=== PATIENT | male | born 1990 | race Caucasian/White ===

== ENCOUNTER 2018-05-01 12:24 | Emergency (ER) | payer MEDICAID, OTHER ==
[2018-05-01] MEDS: IBUPROFEN 600 MG TAB PO (14:20)
== END 2018-05-01 14:43 | disposition home or self-care (01) ==
LOC: M ED 12:24
DX: S62.632A Displaced fracture of distal phalanx of right middle finger, initial encounter for closed fracture (principal); W22.8XXA Striking against or struck by other objects, initial encounter; Y92.89 Other specified places as the place of occurrence of the external cause; Y93.69 Activity, other involving other sports and athletics played as a team or group
CPT/HCPCS: 73140

== ENCOUNTER 2018-07-04 09:56 | Emergency (ER) | payer OTHER | END 2018-07-04 11:47 | disposition home or self-care (01) | LOC: M ED 09:56 | DX: K02.9 Dental caries, unspecified (principal) | CPT/HCPCS: 99282 ==

== ENCOUNTER 2019-03-12 11:10 | Emergency (ER) | payer OTHER ==
[~2019-03-12] VITALS: Ht 175.3 cm; Wt 79.1 kg
[~2019-03-12 11:10] MED LIST: AMBI10TA; CELE10TA; CELE20TA; DEPA500T2 PO; DRIS50003 PO; HYDR-3715 PO; HYDR10TA3; IBUP200C25 PO; LIDO1SOL8 PO; PERC5TAB12 PO; SEROQUEL; SEROQUEL XR; VITA200016 PO
[2019-03-12 11:11] VITALS: BP 127/71
[2019-03-12] MEDS ORDERED: NAPR500T6 PO (11:56)
== END 2019-03-12 12:08 | disposition home or self-care (01) ==
LOC: M ED 11:10
DX: M25.532 Pain in left wrist (principal); F33.9 Major depressive disorder, recurrent, unspecified

== ENCOUNTER → 2019-04-07 | Outpatient (CLI) | payer OTHER ==
[~2019-04-07] MED LIST changes: +NAPR500T6 PO
[2019-04-07 16:30] LABS: BASO % 0.3 % (0.0-1.0); EOS # 0.1 10^3/uL (0.0-0.50); HEMATOCRIT 44.2 % (42.0-52.0); HEMOGLOBIN 14.7 g/dl (13.5-17.5); LYMPH # 2.4 10^3/uL (1.5-4.5); LYMPH % 25.2 % (24.0-44.0); MEAN CORPUSCULAR HEMOGLOBIN 30.6 pg (27.0-33.0); MEAN CORPUSCULAR HGB CONC 33.3 g/dl (32.0-36.5); MEAN CORPUSCULAR VOLUME 91.9 fl (80.0-96.0); MONO % 10.8 % (0.0-5.0); NEUTROPHILS # 5.9 10^3/uL (1.8-7.7); NEUTROPHILS % 62.5 % (36.0-66.0); PLATELET COUNT, AUTOMATED 217 10^3/uL (150-450); RED BLOOD COUNT 4.81 10^6/uL (4.30-6.10); WHITE BLOOD COUNT 9.5 10^3/uL (4.0-10.0)
--- NOTE | 2019-04-07 16:46 | REP ---
Clinical: Nontraumatic hip pain. Technique: Neutral and frog lateral views of the left hip. Findings: Skeletal structures, joint spaces, and surrounding soft tissues appear normal. No acute fracture dislocation. No significant arthritic changes. Surrounding soft tissues are unremarkable. Impression: Normal left hip radiographs. Electronically Signed by Rafael Maldonado MD 04/07/2019 04:37 P
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
--- NOTE | 2019-04-07 16:48 | REP ---
Clinical: Lower back pain . Technique: AP, lateral, bilateral oblique, and coned-down views. Findings: Alignment and lordosis is maintained. The vertebral bodies including transverse process and spinous processes are intact and normal. There is no evidence for acute fracture / compression injury or subluxation. No evidence for spondylolysis or spondylolisthesis. No significant degenerative change is noted. Impression: Normal lumbosacral spine radiograph series. Electronically Signed by Rafael Maldonado MD 04/07/2019 04:39 P
[2019-04-07 17:10] LABS: ALBUMIN 4.1 GM/DL (3.2-5.2); ALT/SGPT 27 U/L (12-78); BILIRUBIN,TOTAL 0.3 MG/DL (0.2-1.0); BLOOD UREA NITROGEN 11 MG/DL (7-18); CALCIUM LEVEL 9.5 MG/DL (8.5-10.1); CARBON DIOXIDE LEVEL 31 MEQ/L (21-32); CHLORIDE LEVEL 104 MEQ/L (98-107); CHOLESTEROL LEVEL 141 MG/DL (<200); CREATININE FOR GFR 0.96 MG/DL (0.70-1.30); FREE T4 1.07 NG/DL (0.76-1.46); GLOMERULAR FILTRATION RATE > 60.0 (>60); GLUCOSE, FASTING 84 MG/DL (70-100); HDL CHOLESTEROL 53 MG/DL (>40); LDL CHOLESTEROL 60 MG/DL (<100); NON-HDL-C 88 MG/DL; POTASSIUM SERUM 4.2 MEQ/L (3.5-5.1); SODIUM LEVEL 140 MEQ/L (136-145); THYROID STIMULATING HORMONE 0.703 uIU/ML (0.358-3.740); TOTAL PROTEIN 7.1 GM/DL (6.4-8.2); TRIGLYCERIDES LEVEL 142 MG/DL (<150)
== END ==
LOC: M LAB 15:52
PROVIDERS: ATTEND Nurse Practitioner Family
DX: M25.532 Pain in left wrist (principal); M54.5 Low back pain; F31.9 Bipolar disorder, unspecified; Z13.228 Encounter for screening for other metabolic disorders

== ENCOUNTER 2019-08-24 07:36 | Inpatient (IN) | payer MEDICAID, OTHER ==
[~2019-08-24] VITALS: Ht 175.3 cm; Wt 77.2 kg
[2019-08-24 08:13] LABS: HEMATOCRIT 45.2 % (42.0-52.0); HEMOGLOBIN 15.8 g/dl (13.5-17.5); MEAN CORPUSCULAR HEMOGLOBIN 32.5 pg (27.0-33.0); PLATELET COUNT, AUTOMATED 183 10^3/uL (150-450); RED BLOOD COUNT 4.86 10^6/uL (4.30-6.10)
[2019-08-24 08:57] LABS: AMPHETAMINES LEVEL URINE NEGATIVE (NEGATIVE); BARBITURATES URINE NEGATIVE (NEGATIVE); BENZODIAZEPINES URINE NEGATIVE (NEGATIVE); CANNABINOIDS URINE POSITIVE (NEGATIVE); COCAINE METABOLITE URINE NEGATIVE (NEGATIVE); METHADONE URINE NEGATIVE (NEGATIVE); OPIATES URINE NEGATIVE (NEGATIVE); PHENCYCLIDINE URINE NEGATIVE (NEGATIVE)
[2019-08-24 09:16] LABS: ACETAMINOPHEN LEVEL < 2.0 UG/ML (10.0-30.0); ALBUMIN 4.2 GM/DL (3.2-5.2); ALT/SGPT 30 U/L (12-78); BILIRUBIN,DIRECT 0.1 MG/DL (0.0-0.2); BILIRUBIN,TOTAL 0.4 MG/DL (0.2-1.0); BLOOD UREA NITROGEN 14 MG/DL (7-18); CALCIUM LEVEL 9.2 MG/DL (8.5-10.1); CARBON DIOXIDE LEVEL 27 MEQ/L (21-32); CHLORIDE LEVEL 105 MEQ/L (98-107); CREATININE FOR GFR 0.96 MG/DL (0.70-1.30); ETHYL ALCOHOL (ETHANOL) < 0.003 % (0.000-0.010); GLOMERULAR FILTRATION RATE > 60.0 (>60); GLUCOSE, FASTING 96 MG/DL (70-100); POTASSIUM SERUM 4.1 MEQ/L (3.5-5.1); SALICYLATE LEVEL 2.9 MG/DL (5.0-30.0); SODIUM LEVEL 138 MEQ/L (136-145); TOTAL PROTEIN 7.4 GM/DL (6.4-8.2)
[2019-08-24] MEDS ORDERED: ACETAMINOPHEN TAB 650MG DOSE (2X325MG) PO PRN (18:45)
[2019-08-24] MEDS ORDERED: MAALOX 30 ML SUSP *UDC PO PRN (18:45)
[2019-08-24] MEDS ORDERED: MOM 30ML SUSPENSION UDC PO PRN (18:45)
[2019-08-24 20:19] VITALS: BP 142/85
[2019-08-24] MEDS ORDERED: traZODone 50 MG TAB PO PRN (21:00)
[2019-08-25 06:57] VITALS: BP 142/73
--- NOTE | 2019-08-25 07:35 | ECGEPIP ---
[facility] - ED Test Date: 2019-08-24 Pat Name: GREGORIO JOSHUA Department: Room: - Gender: Male Rehab Specialist: : 1990 Requested By: Arpit Wong Order Number: [id number] Reading MD: Arpit Anderson Measurements Intervals [place] Rate: 61 P: 63 CA: 131 QRS: 76 QRSD: 88 T: 53 QT: 413 QTc: 417 Interpretive Statements SINUS RHYTHM WITH MARKED SINUS ARRHYTHMIA INCOMPLETE RIGHT BUNDLE BRANCH BLOCK BENIGN EARLY REPOLARIZATION PROMINENT T WAVES ON ALL PRIORS Electronically Signed on 08-25-2019 7:35:01 EDT by Arpit Anderson
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
[2019-08-25 16:06] VITALS: BP 126/65
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
--- NOTE | 2019-08-25 18:16 | REP ---
Clinical: Left hip pain. Technique: Single AP view of the pelvis. Findings: Osseous structures, joint spaces, and surrounding soft tissues are symmetric and normal for age. Impression: Normal pelvic radiograph. Electronically Signed by Rafael Maldonado MD 08/25/2019 06:07 P
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
--- NOTE | 2019-08-25 20:55 | REPVR ---
PROCEDURE INFORMATION: Exam: MR Lumbar Spine Without Contrast. Exam date and time: 08/25/2019 8:03 PM Clinical history: 29 years old, male; Pain; Lumbago with sciatica; Left; Additional info: Low back pain with left sided radiculopathy TECHNIQUE: Imaging protocol: Multiplanar magnetic resonance images of the lumbar spine without intravenous contrast. COMPARISON: CR Spine. Lumbosacral, complete 04/07/2019 4:18 PM FINDINGS: Vertebral body heights are maintained. No abnormal marrow signal. No cord compression. No abnormal cord signal. Conus medullaris terminates at the L1 level. Paravertebral soft tissues are unremarkable. L1-L2: No significant canal or foraminal narrowing. L2-L3: No significant canal or foraminal narrowing. L3-L4: No significant canal or foraminal narrowing. L4-L5: Small right foraminal disc protrusion causes mild right foraminal narrowing. No significant canal narrowing. L5-S1: No significant canal or foraminal narrowing. IMPRESSION: No acute findings in the lumbar spine. Electronically signed by: Fabian Henson On 08/25/2019 20:55:26 PM
[2019-08-26 06:23] VITALS: BP 136/69
[2019-08-26 07:28] LABS: HEMOGLOBIN A1c 5.3 %
[2019-08-26 07:38] LABS: CHOLESTEROL RISK RATIO 3.033 (<5)
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
[2019-08-26 16:11] VITALS: BP 106/58
[2019-08-27 06:21] VITALS: BP 139/76
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
[2019-08-27 14:12] LABS: ANTINUCLEAR ANTIBODIES DIRECT Negative (Negative)
== END 2019-08-27 12:30 | disposition home or self-care (01) | DRG 754 ==
LOC: M ED 07:36 → M ED INP 18:42 → M ED 20:09 → M PSY 20:10
PROVIDERS: ADMIT Psychiatry & Neurology Psychiatry; ATTEND Psychiatry & Neurology Psychiatry
DX: F32.9 Major depressive disorder, single episode, unspecified (principal); R45.851 Suicidal ideations; F41.8 Other specified anxiety disorders; F60.2 Antisocial personality disorder; F60.81 Narcissistic personality disorder; Z76.5 Malingerer [conscious simulation]; Z59.0 Homelessness; M54.5 Low back pain; F12.90 Cannabis use, unspecified, uncomplicated; R51 Headache

== ENCOUNTER 2019-09-28 14:50 | Emergency (ER) | payer MEDICAID, OTHER ==
[~2019-09-28] VITALS: Ht 175.3 cm; Wt 76.0 kg
[2019-09-28] MEDS ORDERED: NS 1,000 ML IV ONE ×2 (15:00→16:15)
[2019-09-28 15:33] LABS: VENOUS BASE EXCESS -4.5 (-2.0-2.0); VENOUS HCO3 20.5 MEQ/L (23.0-27.0); VENOUS O2 SATURATION 92.3 % (60.0-80.0); VENOUS PARTIAL PRESSURE O2 65.1 mmHg (30.0-50.0); VENOUS PH 7.349 UNITS (7.330-7.430); VENOUS STANDARD HCO3 20.7 MEQ/L; VENOUS TOTAL CO2 21.6 MEQ/L (24.0-28.0)
[2019-09-28 15:38] LABS: BASO % 0.3 % (0.0-1.0); EOS % 0.1 % (0.0-3.0); HEMATOCRIT 49.8 % (42.0-52.0); HEMOGLOBIN 16.8 g/dl (13.5-17.5); LYMPH # 1.8 10^3/uL (1.5-5.0); LYMPH % 13.1 % (24.0-44.0); MEAN CORPUSCULAR HEMOGLOBIN 31.3 pg (27.0-33.0); MEAN CORPUSCULAR HGB CONC 33.7 g/dl (32.0-36.5); MEAN CORPUSCULAR VOLUME 92.7 fl (80.0-96.0); MONO % 7.2 % (0.0-5.0); NEUTROPHILS # 10.5 10^3/uL (1.5-8.5); NEUTROPHILS % 78.8 % (36.0-66.0); PLATELET COUNT, AUTOMATED 207 10^3/uL (150-450); RED BLOOD COUNT 5.37 10^6/uL (4.30-6.10); WHITE BLOOD COUNT 13.3 10^3/uL (4.0-10.0)
[2019-09-28 16:00] LABS: OSMOLALITY SERUM 288 MOSM/KG (275-295)
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
[2019-09-28 16:07] LABS: ACETAMINOPHEN LEVEL < 2.0 UG/ML (10.0-30.0); ALBUMIN 4.5 GM/DL (3.2-5.2); ALT/SGPT 34 U/L (12-78); BILIRUBIN,DIRECT 0.1 MG/DL (0.0-0.2); BILIRUBIN,TOTAL 0.5 MG/DL (0.2-1.0); BLOOD UREA NITROGEN 16 MG/DL (7-18); CALCIUM LEVEL 9.1 MG/DL (8.5-10.1); CARBON DIOXIDE LEVEL 21 MEQ/L (21-32); CHLORIDE LEVEL 101 MEQ/L (98-107); CK-MB VALUE MASS 1.4 NG/ML (<3.6); CPK CREATINE PHOSPHOKINASE 112 U/L (39-308); ETHYL ALCOHOL (ETHANOL) < 0.003 % (0.000-0.010); GLOMERULAR FILTRATION RATE > 60.0 (>60); GLUCOSE, FASTING 172 MG/DL (70-100); MB/CK RELATIVE INDEX 1.25 (< OR =4); POTASSIUM SERUM 4.1 MEQ/L (3.5-5.1); SALICYLATE LEVEL 2.2 MG/DL (5.0-30.0); SODIUM LEVEL 136 MEQ/L (136-145); TOTAL PROTEIN 8.1 GM/DL (6.4-8.2); TROPONIN I < 0.02 NG/ML (< 0.10)
[2019-09-28 16:10] LABS: AMPHETAMINES LEVEL URINE NEGATIVE (NEGATIVE); BARBITURATES URINE NEGATIVE (NEGATIVE); BENZODIAZEPINES URINE NEGATIVE (NEGATIVE); CANNABINOIDS URINE POSITIVE (NEGATIVE); COCAINE METABOLITE URINE NEGATIVE (NEGATIVE); METHADONE URINE NEGATIVE (NEGATIVE); OPIATES URINE NEGATIVE (NEGATIVE); PHENCYCLIDINE URINE NEGATIVE (NEGATIVE)
[2019-09-28] MEDS ORDERED: NS 500 ML IV ONE (16:15)
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
--- NOTE | 2019-09-28 16:39 | REP ---
Single view chest: 09/28/2019. Indication: Altered mental status. Comparison: 04/08/2013. Findings: The lungs are clear. There is no pleural effusion or pneumothorax. The cardiomediastinal silhouette is unremarkable. Impression: No acute cardiopulmonary process. Electronically Signed by Larry Prado DO 09/28/2019 04:31 P
--- NOTE | 2019-09-28 18:46 | ECGEPIP ---
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
[2019-09-28 19:00] VITALS: BP 99/53
== END 2019-09-28 20:02 | disposition home or self-care (01) ==
LOC: M ED 14:50 → EDBD 14:50 → M ED 20:02
DX: G40.909 Epilepsy, unspecified, not intractable, without status epilepticus (principal); F31.9 Bipolar disorder, unspecified; F12.10 Cannabis abuse, uncomplicated; J34.89 Other specified disorders of nose and nasal sinuses
CPT/HCPCS: 70450; 70486; 71045; 72125; 80048; 80076; 80307; 81001; 82550; 82553; 82803; 83605; 83930; 84443; 85025; 87040; 93005; 93041; 99285; G0480

== ENCOUNTER → 2019-10-13 | Outpatient (REF) | payer OTHER ==
[2019-10-13 13:01] LABS: BASO # 0.1 10^3/uL (0.0-0.2); BASO % 0.5 % (0.0-1.0); EOS # 0.2 10^3/uL (0.0-0.5); EOS % 2.1 % (0.0-3.0); HEMATOCRIT 48.1 % (42.0-52.0); HEMOGLOBIN 15.9 g/dl (13.5-17.5); LYMPH # 3.1 10^3/uL (1.5-5.0); MEAN CORPUSCULAR HEMOGLOBIN 31.3 pg (27.0-33.0); MEAN CORPUSCULAR HGB CONC 33.1 g/dl (32.0-36.5); MEAN CORPUSCULAR VOLUME 94.7 fl (80.0-96.0); MONO # 1.1 10^3/uL (0.0-0.8); MONO % 10.6 % (0.0-5.0); NEUTROPHILS # 6.1 10^3/uL (1.5-8.5); NEUTROPHILS % 57.6 % (36.0-66.0); PLATELET COUNT, AUTOMATED 212 10^3/uL (150-450); RED BLOOD COUNT 5.08 10^6/uL (4.30-6.10); WHITE BLOOD COUNT 10.5 10^3/uL (4.0-10.0)
[2019-10-13 13:35] LABS: HEMOGLOBIN A1c 5.4 %; TOTAL 25(OH) VITAMIN D 26.4 NG/ML (30.0-100.0)
[2019-10-13 13:54] LABS: ALT/SGPT 30 U/L (12-78); BILIRUBIN,TOTAL 0.5 MG/DL (0.2-1.0); BLOOD UREA NITROGEN 14 MG/DL (7-18); CALCIUM LEVEL 9.5 MG/DL (8.5-10.1); CARBON DIOXIDE LEVEL 32 MEQ/L (21-32); CHLORIDE LEVEL 105 MEQ/L (98-107); CHOLESTEROL LEVEL 194 MG/DL (<200); CHOLESTEROL RISK RATIO 3.527 (<5); CREATININE FOR GFR 1.05 MG/DL (0.70-1.30); FREE T4 1.02 NG/DL (0.76-1.46); GLOMERULAR FILTRATION RATE > 60.0 (>60); GLUCOSE, FASTING 102 MG/DL (70-100); HDL CHOLESTEROL 55 MG/DL (>40); LDL CHOLESTEROL 121 MG/DL (<100); NON-HDL-C 139 MG/DL; POTASSIUM SERUM 4.3 MEQ/L (3.5-5.1); SODIUM LEVEL 142 MEQ/L (136-145); TOTAL PROTEIN 7.3 GM/DL (6.4-8.2); TRIGLYCERIDES LEVEL 91 MG/DL (<150)
== END ==
LOC: M LAB REF 12:49
PROVIDERS: ATTEND Nurse Practitioner Family
DX: Z13.29 Encounter for screening for other suspected endocrine disorder (principal)

== ENCOUNTER 2020-05-27 13:50 | Emergency (ER) | payer OTHER ==
[~2020-05-27 13:50] MED LIST changes: -LIDO1SOL8 PO; +LIDO2SOL17 PO
[2020-05-27] MEDS ORDERED: ONDANSETRON 4MG/2ML VIAL IV ONE (14:30)
[2020-05-27] MEDS ORDERED: NS 1,000 ML IV ONE (14:30)
--- NOTE | 2020-05-27 14:34 | REP ---
CT BRAIN WITHOUT CONTRAST: CT brain performed without IV contrast. Coronal reconstruction images are performed. The ventricles are normal in size and position. There is no midline shift or mass effect. The arguello-white differentiation is well maintained. There is no acute intracranial hemorrhage or extra-axial fluid collection. No skull fracture is seen. IMPRESSION: Negative noncontrast CT brain. Electronically Signed by Benjamin Arguello MD 05/30/2020 09:42 A
[2020-05-27 14:40] LABS: BASO % 0.2 % (0.0-1.0); EOS % 0.1 % (0.0-3.0); HEMATOCRIT 44.4 % (42.0-52.0); HEMOGLOBIN 15.3 g/dl (13.5-17.5); LYMPH % 5.5 % (24.0-44.0); MEAN CORPUSCULAR HEMOGLOBIN 31.4 pg (27.0-33.0); MEAN CORPUSCULAR HGB CONC 34.5 g/dl (32.0-36.5); MEAN CORPUSCULAR VOLUME 91.2 fl (80.0-96.0); MONO # 1.6 10^3/uL (0.0-0.8); MONO % 8.7 % (0.0-5.0); NEUTROPHILS # 15.8 10^3/uL (1.5-8.5); NEUTROPHILS % 85.1 % (36.0-66.0); PLATELET COUNT, AUTOMATED 182 10^3/uL (150-450); RED BLOOD COUNT 4.87 10^6/uL (4.30-6.10); WHITE BLOOD COUNT 18.6 10^3/uL (4.0-10.0)
[2020-05-27 15:13] LABS: ALBUMIN 4.3 GM/DL (3.2-5.2); ALT/SGPT 27 U/L (12-78); BILIRUBIN,DIRECT < 0.1 MG/DL (0.0-0.2); BILIRUBIN,TOTAL 0.3 MG/DL (0.2-1.0); ETHYL ALCOHOL (ETHANOL) < 0.003 % (0.000-0.010); TOTAL PROTEIN 7.5 GM/DL (6.4-8.2)
[2020-05-27 17:23] LABS: AMPHETAMINES LEVEL URINE NEGATIVE (NEGATIVE); BARBITURATES URINE NEGATIVE (NEGATIVE); BENZODIAZEPINES URINE POSITIVE (NEGATIVE); CANNABINOIDS URINE POSITIVE (NEGATIVE); COCAINE METABOLITE URINE NEGATIVE (NEGATIVE); METHADONE URINE NEGATIVE (NEGATIVE); OPIATES URINE NEGATIVE (NEGATIVE); PHENCYCLIDINE URINE NEGATIVE (NEGATIVE)
[2020-05-27] MEDS ORDERED: EEG (17:30)
[2020-05-27 18:15] VITALS: BP 127/73
== END 2020-05-27 18:29 | disposition home or self-care (01) ==
LOC: M ED 13:50 → EDBD 13:50 → M ED 18:29
DX: R56.9 Unspecified convulsions (principal); F32.9 Major depressive disorder, single episode, unspecified; G89.29 Other chronic pain
CPT/HCPCS: 70450; 80047; 80076; 80307; 85025; 96361; 96374; 99284; G0480; J2405

== ENCOUNTER 2020-06-22 18:05 | Emergency (ER) | payer OTHER ==
[~2020-06-22 18:05] MED LIST changes: +EEG
== END 2020-06-22 21:02 | disposition home or self-care (01) ==
LOC: M ED 18:05
DX: H66.91 Otitis media, unspecified, right ear (principal)

== ENCOUNTER 2020-07-22 13:22 | Emergency (ER) | payer OTHER ==
[~2020-07-22] VITALS: Ht 175.3 cm; Wt 84.1 kg
[2020-07-22] MEDS ORDERED: LORazepam 2 MG/ML VIAL As Ordered ONE (13:29)
[2020-07-22] MEDS ORDERED: LORazepam 2 MG/ML VIAL IV STA (13:34)
[2020-07-22] MEDS ORDERED: NS 1,000 ML IV ONE (13:45)
[2020-07-22] MEDS ORDERED: levETIRAcetam INJection 1,000 MG in D5W 100 ML IV ONE (13:45)
--- NOTE | 2020-07-22 14:00 | REPVR ---
PROCEDURE INFORMATION: Exam: CT Head Without Contrast Exam date and time: 07/22/2020 1:34 PM Age: 30 years old Clinical indication: Altered mental status/memory loss TECHNIQUE: Imaging protocol: Computed tomography of the head without contrast. Radiation optimization: All CT scans at this facility use at least one of these dose optimization techniques: automated exposure control; mA and/or kV adjustment per patient size (includes targeted exams where dose is matched to clinical indication); or iterative reconstruction. COMPARISON: CT Head without contrast 05/27/2020 2:00 PM FINDINGS: Brain: No acute intracranial hemorrhage, cerebral edema, or midline shift. Ventricles: No hydrocephalus. Bones/joints: There is an old right medial orbital wall fracture. Sinuses: Mucosal thickening is present in the right ethmoid air cells. Mastoid air cells: Visualized mastoid air cells are well aerated. Orbits: The included orbital structures are unremarkable. Soft tissues: Unremarkable. IMPRESSION: No acute intracranial abnormality. Electronically signed by: Alec Navarrete On 07/22/2020 13:59:47 PM
[2020-07-22 14:25] LABS: BASO % 0.2 % (0.0-1.0); EOS % 0.2 % (0.0-3.0); HEMATOCRIT 49.1 % (42.0-52.0); HEMOGLOBIN 16.4 g/dl (13.5-17.5); LYMPH # 2.4 10^3/uL (1.5-5.0); MEAN CORPUSCULAR HEMOGLOBIN 31.7 pg (27.0-33.0); MEAN CORPUSCULAR HGB CONC 33.4 g/dl (32.0-36.5); MONO # 1.1 10^3/uL (0.0-0.8); MONO % 6.6 % (0.0-5.0); NEUTROPHILS # 13.2 10^3/uL (1.5-8.5); NEUTROPHILS % 78.3 % (36.0-66.0); PLATELET COUNT, AUTOMATED 223 10^3/uL (150-450); RED BLOOD COUNT 5.17 10^6/uL (4.30-6.10); WHITE BLOOD COUNT 16.8 10^3/uL (4.0-10.0)
[2020-07-22 14:56] LABS: ACETAMINOPHEN LEVEL < 2.0 UG/ML (10.0-30.0); ALBUMIN 4.5 GM/DL (3.2-5.2); ALT/SGPT 26 U/L (12-78); BILIRUBIN,DIRECT 0.1 MG/DL (0.0-0.2); BILIRUBIN,TOTAL 0.4 MG/DL (0.2-1.0); BLOOD UREA NITROGEN 12 MG/DL (7-18); CALCIUM LEVEL 9.3 MG/DL (8.5-10.1); CARBON DIOXIDE LEVEL 19 MEQ/L (21-32); CHLORIDE LEVEL 105 MEQ/L (98-107); CK-MB VALUE MASS < 1.0 NG/ML (<3.6); CPK CREATINE PHOSPHOKINASE 90 U/L (39-308); CREATININE FOR GFR 1.31 MG/DL (0.70-1.30); ETHYL ALCOHOL (ETHANOL) < 0.003 % (0.000-0.010); GLOMERULAR FILTRATION RATE > 60.0 (>60); GLUCOSE, FASTING 140 MG/DL (70-100); MB/CK RELATIVE INDEX 1.11 (< OR =4); POTASSIUM SERUM 3.8 MEQ/L (3.5-5.1); SALICYLATE LEVEL 2.6 MG/DL (5.0-30.0); SODIUM LEVEL 137 MEQ/L (136-145); TOTAL PROTEIN 8.1 GM/DL (6.4-8.2); TROPONIN I < 0.02 NG/ML (< 0.10)
[2020-07-22] MEDS ORDERED: NS IV ONE (15:00)
--- NOTE | 2020-07-22 16:24 | REPVR ---
PROCEDURE INFORMATION: Exam: XR Chest, 1 View Exam date and time: 07/22/2020 1:34 PM Age: 30 years old Clinical indication: Other: Seizure; Additional info: Altered mental status TECHNIQUE: Imaging protocol: XR of the chest Views: 1 view. COMPARISON: ME PORTABLE CHEST X-RAY 09/28/2019 4:25 PM FINDINGS: Lungs: Unremarkable. No consolidation. Pleural space: Unremarkable. No pleural effusion. No pneumothorax. Heart/Mediastinum: Unremarkable. No cardiomegaly. Bones/joints: Unremarkable. IMPRESSION: No acute findings. Electronically signed by: Alec Navarrete On 07/22/2020 16:24:08 PM
[2020-07-22 18:37] LABS: AMPHETAMINES LEVEL URINE NEGATIVE (NEGATIVE); BARBITURATES URINE NEGATIVE (NEGATIVE); BENZODIAZEPINES URINE NEGATIVE (NEGATIVE); CANNABINOIDS URINE POSITIVE (NEGATIVE); COCAINE METABOLITE URINE NEGATIVE (NEGATIVE); METHADONE URINE NEGATIVE (NEGATIVE); OPIATES URINE NEGATIVE (NEGATIVE); PHENCYCLIDINE URINE NEGATIVE (NEGATIVE)
[2020-07-22 18:39] VITALS: BP 112/68
[2020-07-22] MEDS ORDERED: KEPP1TAB PO (18:53)
--- NOTE | 2020-07-29 12:28 | ECGEPIP ---
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
== END 2020-07-22 19:57 | disposition home or self-care (01) ==
LOC: M ED 13:22 → EDBD 13:22 → M ED 19:57
DX: G40.909 Epilepsy, unspecified, not intractable, without status epilepticus (principal)
CPT/HCPCS: 70450; 71045; 80048; 80076; 80307; 81001; 82550; 82553; 83605; 84443; 85025; 93005; 93041; 94760; 96361; 96365; 99285; G0480; J1953; J2060

== ENCOUNTER 2020-10-07 10:56 | Emergency (ER) | payer MEDICAID, OTHER ==
[~2020-10-07] VITALS: Ht 175.3 cm; Wt 81.3 kg
[~2020-10-07 10:56] MED LIST changes: +KEPP1TAB PO
[2020-10-07] MEDS ORDERED: levETIRAcetam INJection 1,000 MG in D5W 100 ML IV ONE (11:45)
[2020-10-07 11:54] LABS: BASO % 0.2 % (0.0-1.0); HEMATOCRIT 46.6 % (42.0-52.0); HEMOGLOBIN 15.3 g/dl (13.5-17.5); LYMPH # 1.1 10^3/uL (1.5-5.0); LYMPH % 12.3 % (24.0-44.0); MEAN CORPUSCULAR HEMOGLOBIN 30.2 pg (27.0-33.0); MEAN CORPUSCULAR HGB CONC 32.8 g/dl (32.0-36.5); MEAN CORPUSCULAR VOLUME 91.9 fl (80.0-96.0); MONO # 1.8 10^3/uL (0.0-0.8); MONO % 20.8 % (0.0-5.0); NEUTROPHILS # 5.7 10^3/uL (1.5-8.5); NEUTROPHILS % 66.6 % (36.0-66.0); PLATELET COUNT, AUTOMATED 186 10^3/uL (150-450); RED BLOOD COUNT 5.07 10^6/uL (4.30-6.10); WHITE BLOOD COUNT 8.5 10^3/uL (4.0-10.0)
--- NOTE | 2020-10-07 12:11 | REP ---
INDICATION: seizure COMPARISON: 09/28/2019, 07/22/2020 TECHNIQUE: Axial noncontrast images from the skull base to the vertex with coronal reformations. This CT examination was performed using the following dose reduction techniques: Automated exposure control, adjustment of mA and/or kv according to the patient's size, and use of iterative reconstruction technique. FINDINGS: The ventricles, sulci, and cisterns are normal in position and appearance. Arguello-white differentiation is maintained. No acute intracranial hemorrhage, mass/mass effect, pathology or trauma/injury. No evidence for acute infarction. No extra-axial fluid collection. Calvarium is intact. Paranasal sinuses and mastoid air cells are clear. IMPRESSION: Normal noncontrast head CT. No evidence for acute intracranial pathology or trauma/injury. <Electronically signed by Rafael Maldonado > 10/07/20 [id number]
[2020-10-07 12:23] LABS: ALBUMIN 2.9 GM/DL (3.2-5.2); ALT/SGPT 27 U/L (12-78); BILIRUBIN,DIRECT 0.1 MG/DL (0.0-0.2); BILIRUBIN,TOTAL 0.3 MG/DL (0.2-1.0); BLOOD UREA NITROGEN 15 MG/DL (7-18); CALCIUM LEVEL 9.2 MG/DL (8.5-10.1); CARBON DIOXIDE LEVEL 31 MEQ/L (21-32); CHLORIDE LEVEL 101 MEQ/L (98-107); CREATININE FOR GFR 1.03 MG/DL (0.70-1.30); GLOMERULAR FILTRATION RATE > 60.0 (>60); GLUCOSE, FASTING 100 MG/DL (70-100); POTASSIUM SERUM 3.6 MEQ/L (3.5-5.1); SODIUM LEVEL 136 MEQ/L (136-145); TOTAL PROTEIN 7.4 GM/DL (6.4-8.2)
[2020-10-07] MEDS ORDERED: KEPP1TAB PO (12:49)
[2020-10-07 13:40] VITALS: BP 131/77
== END 2020-10-07 13:42 | disposition home or self-care (01) ==
LOC: M ED 10:56
DX: R56.9 Unspecified convulsions (principal); Z91.14 Patient's other noncompliance with medication regimen; F31.89 Other bipolar disorder; Z79.899 Other long term (current) drug therapy
CPT/HCPCS: 70450; 80048; 80076; 85025; 96374; 99284; J1953

== ENCOUNTER 2020-10-09 14:25 | Emergency (ER) | payer OTHER ==
[~2020-10-09] VITALS: Ht 175.3 cm; Wt 82.3 kg
[2020-10-09 14:26] VITALS: BP 121/71
[2020-10-09] MEDS ORDERED: BENZ200C70 PO (15:00)
== END 2020-10-09 15:14 | disposition home or self-care (01) ==
LOC: M ED 14:25
DX: Z11.59 Encounter for screening for other viral diseases (principal); R05 Cough; R56.9 Unspecified convulsions; F17.200 Nicotine dependence, unspecified, uncomplicated
CPT/HCPCS: 99282; U0003

== ENCOUNTER 2020-10-11 11:16 | Emergency (ER) | payer OTHER ==
[~2020-10-11] VITALS: Ht 175.3 cm; Wt 79.5 kg
[~2020-10-11 11:16] MED LIST changes: +BENZ200C70 PO
[2020-10-11] MEDS ORDERED: ALBUTEROL 90 MCG/ACT 8GM HFA INHALER INH STA (12:29)
--- NOTE | 2020-10-11 14:12 | REP ---
INDICATION: wheezing, sob. COMPARISON: Comparison radiograph July 22, 2020.. TECHNIQUE: Sitting upright AP portable radiograph. FINDINGS: The lungs are well inflated and clear. The pleural angles are sharp. Heart size is normal. Pulmonary vasculature is not increased. No bony abnormality is seen. IMPRESSION: Negative portable chest x-ray. <Electronically signed by Chapin Bravo > 10/11/20 [id number]
[2020-10-11] MEDS ORDERED: PROA1AER2 INH (14:38)
[2020-10-11 15:01] VITALS: BP 127/79
== END 2020-10-11 15:03 | disposition home or self-care (01) ==
LOC: M ED 11:16
DX: R06.2 Wheezing (principal); R06.02 Shortness of breath; R56.9 Unspecified convulsions; F17.200 Nicotine dependence, unspecified, uncomplicated

== ENCOUNTER 2020-12-01 15:46 | Emergency (ER) | payer OTHER ==
[~2020-12-01] VITALS: Ht 175.3 cm; Wt 79.0 kg
[~2020-12-01 15:46] MED LIST changes: +PROA1AER2 INH
--- OUTSIDE RECORDS SUMMARY | 2020-12-01 15:53 | CCD ---
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 Name Role Phone Anushka Dias Unavailable Unavailable Anushka Dias Unavailable Unavailable Anushka Dias Unavailable Unavailable Arun, A Noemi MARKETING SEGMENT MANAGER Unavailable Unavailable Arun, A Noemi MARKETING SEGMENT MANAGER Unavailable Unavailable Arun, A Noemi MARKETING SEGMENT MANAGER Unavailable Unavailable Arun, A Noemi MARKETING SEGMENT MANAGER Unavailable Unavailable Arun, A Noemi MARKETING SEGMENT MANAGER Unavailable Unavailable Arun, A Noemi MARKETING SEGMENT MANAGER Unavailable Unavailable Arun, A Noemi MARKETING SEGMENT MANAGER Unavailable Unavailable Arun, A Noemi MARKETING SEGMENT MANAGER Unavailable Unavailable [place], A Noemi MARKETING SEGMENT MANAGER Unavailable Unavailable Arun, A Noemi MARKETING SEGMENT MANAGER Unavailable Unavailable [place], A Noemi MARKETING SEGMENT MANAGER Unavailable Unavailable [place], A Noemi MARKETING SEGMENT MANAGER Unavailable Unavailable Arun, A Noemi MARKETING SEGMENT MANAGER Unavailable Unavailable Arun, A Nomei MARKETING SEGMENT MANAGER Unavailable Unavailable Arun, A Noemi MARKETING SEGMENT MANAGER Unavailable Unavailable Arun, A Noemi MARKETING SEGMENT MANAGER Unavailable Unavailable Arun, A Noemi MARKETING SEGMENT MANAGER Unavailable Unavailable Arun, A Noemi MARKETING SEGMENT MANAGER Unavailable Unavailable Arun, A Noemi MARKETING SEGMENT MANAGER Unavailable Unavailable Arun, A Noemi MARKETING SEGMENT MANAGER Unavailable Unavailable Arun, A Noemi MARKETING SEGMENT MANAGER Unavailable Unavailable Arun, A Noemi MARKETING SEGMENT MANAGER Unavailable Unavailable Arun, A Noemi MARKETING SEGMENT MANAGER Unavailable Unavailable Arun, A Noemi MARKETING SEGMENT MANAGER Unavailable Unavailable Izadyar, Manuel Unavailable Unavailable Izadyar, Manuel Unavailable Unavailable Izadyar, Manuel Unavailable Unavailable Izadyar, Manuel Unavailable Unavailable Izadyar, Manuel Unavailable Unavailable Izadyar, Manuel Unavailable Unavailable Izadyar, Manuel Unavailable Unavailable Izadyar, Manuel Unavailable Unavailable Izadyar, Manuel Unavailable Unavailable Izadyar, Manuel Unavailable Unavailable Izadyar, Manuel Unavailable Unavailable Izadyar, Manuel Unavailable Unavailable Izadyar, Manuel Unavailable Unavailable Izadyar, Manuel Unavailable Unavailable Izadyar, Manuel Unavailable Unavailable Izadyar, Manuel Unavailable Unavailable Izadyar, Manuel Unavailable Unavailable Izadyar, Manuel Unavailable Unavailable Izadyar, Manuel Unavailable Unavailable Izadyar, Manuel Unavailable Unavailable Izadyar, Manuel Unavailable Unavailable Izadyar, Manuel Unavailable Unavailable Izadyar, Manuel Unavailable Unavailable Izadyar, Manuel Unavailable Unavailable Izadyar, Manuel Unavailable Unavailable Izadyar, Manuel Unavailable Unavailable Izadyar, Manuel Unavailable Unavailable Izadyar, Manuel Unavailable Unavailable Izadyar, Manuel Unavailable Unavailable Izadyar, Manuel Unavailable Unavailable LaBarge, Baltazar Unavailable Arun, Noemi MARKETING SEGMENT MANAGER MARKETING SEGMENT MANAGER Unavailable Unavailable Re-disclosure Warning The records that you are about to access may contain information from federally-assisted alcohol or drug abuse programs. If such information is present, then the following federally mandated warning applies: This information has been disclosed to you from records protected by federal confidentiality rules (42 CFR part 2). The federal rules prohibit you from making any further disclosure of this information unless further disclosure is expressly permitted by the written consent of the person to whom it pertains or as otherwise permitted by 42 CFR part 2. A general authorization for the release of medical or other information is NOT sufficient for this purpose. The Federal rules restrict any use of the information to criminally investigate or prosecute any alcohol or drug abuse patient.The records that you are about to access may contain highly sensitive health information, the redisclosure of which is protected by Article 27-F of the [facility] Public Health law. If you continue you may have access to information: Regarding HIV / AIDS; Provided by facilities licensed or operated by the [facility] Office of Mental Health; or Provided by the [facility] Office for People With Developmental Disabilities. If such information is present, then the following [facility] mandated warning applies: This information has been disclosed to you from confidential records which are protected by state law. State law prohibits you from making any further disclosure of this information without the specific written consent of the person to whom it pertains, or as otherwise permitted by law. Any unauthorized further disclosure in violation of state law may result in a fine or [place] health care facility sentence or both. A general authorization for the release of medical or other information is NOT sufficient authorization for further disc losure. Encounters Encounter Providers Location Date Indications Data Source(s ) Outpatient Attender: Manuel Escobar 12/12/2020 12:00:00 A M [facility] [place] [address] [facility] [place] [address] 09/07/2020 12:00:00 AM EDT [facility] ([facility]) [place] [address] [facility] [place] [address] 08/26/2020 12:00:00 AM EDT [facility]CW1 ([facility]) [place] [address] [facility] [facility] [place] [address] 08/10/2020 12:00:00 AM EDT eCW1 ([facility]) Outpatient Attender: FARIDA [facility] 08/04/2020 12:02:14 A M EDT [facility] Outpatient Attender: Noemi Dias [facility] 07/25/2020 03:0 4:01 PM EDT [facility] Outpatient Attender: FARIDA Arun [facility] 04/19/2020 07:36:50 P M EDT [facility] Outpatient Attender: FARIDA Arun [facility]ING [facility] 04/09/2020 12:10:57 A M EDT [facility] Brief Individual Psychotherapy - 30 min Attender: Baltazar roger [facility] 11/19/2019 02:00:00 AM EST - 11/19/2019 02:00:00 AM EST [facility] ([facility]) Attender: Baltazar LaBarge 11/19/2019 12:00:00 AM EST [facility] ([facility]) Outpatient Attender: FARIDA Dias [facility] 11/17/2019 12:08:01 P M [facility] Outpatient Attender: Noemi Dias [facility] 11/17/2019 12:0 7:02 PM [facility] Brief Individual Psychotherapy - 30 min Attender: Baltazar roger [facility] 11/02/2019 10:15:00 AM EST - 11/02/2019 10:15:00 AM EST [facility] ([facility]) Attender: Baltazar LaBarge 11/02/2019 12:00:00 AM EST [facility] ([facility]) Outpatient Attender: FARIDA Dias [facility] 11/01/2019 01:36:02 A M [facility] Outpatient Attender: Noemi Dias [facility] 11/01/2019 01:3 6:01 AM [facility] Outpatient Attender: Noemi [facility] 11/01/2019 01:3 5:01 AM [facility] Outpatient Attender: FARIDA [facility] 11/01/2019 01:35:00 A M [facility] Outpatient Attender: Noemi [facility] 10/26/2019 03:5 3:01 PM [facility] Extended Individual Psychotherapy - 45 min [facility] 10[facility]19/[facility] 01:45:00 AM EST - 10/19/2019 01:45:00 AM EST [facility] ([facility]) Attender: Baltazar Medina 10/19/2019 12:00:00 AM EST [facility] ([facility]) Outpatient 10/14/2019 05:31:00 AM [facility] Outpatient Attender: FARIDA IQBAL 10/13/2019 08:06:01 A M [facility] Outpatient Attender: FARIDA MONGE 10/13/2019 08:05:03 A [facility] Outpatient Attender: FARIDA IQBAL 10/09/2019 02:26:00 P [facility] Outpatient Attender: FARIDA IQBAL 10/06/2019 07:38:01 A [facility] Outpatient Attender: Noemi IQBAL 10/05/2019 08:0 1:07 PM [facility] Outpatient Attender: FARIDA IQBAL 10/05/2019 08:01:04 P [facility] Medications Medication Brand Name Start Date Product Form Dose Route Admi nistrative Instructions Pharmacy Instructions Status Indications Reaction Description Data Source(s) 90 mcg/actuation 10/11/2020 12:00:00 AM EST HFA aerosol inha ler 18 INHALE 2 PUFFS BY MOUTH EVERY 4-6 HOUR NEEDED FOR SHORTNESS OF BREATH INHALE 2 PUFFS BY MOUTH EVERY 4-6 HOUR NEEDED FOR SHORTNESS OF BREATH SOLD: 10/11/2020 [facility] 200 mg 10/09/2020 12:00:00 AM EST capsule 30 TAKE ONE CAPSULE BY MOUTH THREE TIMES A DAY NEEDED FOR COUGH TAKE ONE CAPSULE BY MOUTH THREE TIMES A DAY NEEDED FOR COUGH SOLD: 10/09/2020 [facility] 500 mg 10/07/2020 12:00:00 AM EST tablet 60 TAKE ONE TABLET BY MOUTH TWICE A DAY TAKE ONE TABLET BY MOUTH TWICE A DAY SOLD: 10/07/2020 [facility] 800 mg 06/24/2020 12:00:00 AM EDT tablet 15 TAKE ONE TABLET BY MOUTH THREE TIMES A DAY FOR 5 DAYS TAKE ONE TABLET BY MOUTH THREE TIMES A DAY FOR 5 DAYS SOLD: 06/24/2020 [facility] 3.5-10,000-1 mg/mL-unit/mL-% 06/24/2020 12:00:00 AM EDT solu tion 10 INSTILL FOUR DROPS IN THE RIGHT EAR FOUR TIMES A DAY FOR 5 DAYS INSTILL FOUR DROPS IN THE RIGHT EAR FOUR TIMES A DAY FOR 5 DAYS SOLD: 06/24/2020 [facility] 875-125 mg 06/23/2020 12:00:00 AM EDT tablet 20 TAKE ONE TABLET BY MOUTH TWICE A DAY FOR 10 DAYS TAKE ONE TABLET BY MOUTH TWICE A DAY FOR 10 DAYS SOLD: 06/23/2020 [facility] Insurance Providers Payer name Policy type / Coverage type Policy ID Covered green party ID Covered green party's relationship to argueta Policy Argueta Plan Information [facility] COMMUNITY PLAN [facility] [id number] SP [id number] [facility] O [id number] S [id number] [facility] [id number] SP [id number] Managed Care - [facility] Community Plan P [id number] S [id number] Medicaid S [id number] S [id number] Managed Care - [facility] Community Plan P [id number] S [id number] [facility] COMMUNITY PLAN [facility] [id number] SP [id number] Medicaid S [id number] S [id number] Managed Care - [facility] Community Plan P [id number] S [id number] Medicaid [place] Medig[place] Part B [id number] Self [id number] [facility] Community Plan Commercial [id number] Self [id number] ANSI-Medicaid [id number] ANSI-Medicaid [id number] MEDICAID [id number] Brittany [id number] Managed Care - Community Plan [facility] P [id number] S [id number] [facility] COMMUNITY PLAN [facility] [id number] SP [id number] MEDICAID [id number] SP [id number] MEDICAID M [id number] S [id number] [facility] COMMUNITY PLAN [facility] [id number] SP [id number] [facility] O [id number] O [id number] [facility]CIAL [facility] [id number] Patient [id number] [facility] COMMUNITY [id number] Patient [id number] SELF PAY SELF Patient SELF [facility] [id number] Patient [id number] Medicaid P [id number] S [id number] Medicaid P [id number] S [id number] Problems, Conditions, and Diagnoses Code Display Name Description Problem Type Effective Dates Data Source(s) F12.20 Cannabis dependence, uncomplicated Cannabis Use Disorder, Moderate Condition 11/19/2019 12:00:00 AM EST [facility] ([facility]) F34.1 Dysthymic disorder Persistent Depressive Disorder (Dys thymia) Condition 11/19/2019 12:00:00 AM EST [facility] ([facility]) 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 10/20/2019 12:00:00 AM EST [facility] ([facility]) [id number] Electrocardiogram abnormal Electrocardiogram abnormal Problem 10/20/2019 12:00:00 AM EST [facility] ([facility]) [id number] Syncope and collapse Syncope and collapse Problem 10/20/2019 12:00:00 AM EST [facility] ([facility]) Surgeries/Procedures Procedure Description Date Indications Data Source(s) Brief Individual Psychotherapy - 30 min 11/19/2019 12:00:00 AM EST - 11/19/2019 12:00:00 AM EST [facility] ([facility]) Brief Individual Psychotherapy - 30 min 11/19/2019 12: 00:00 AM EST [facility] ([facility]) Brief Individual Psychotherapy - 30 min 11/02/2019 12:00:00 AM EST - 11/02/2019 12:00:00 AM EST [facility] ([facility]) Brief Individual Psychotherapy - 30 min 11/02/2019 12: 00:00 AM EST [facility] ([facility]) Extended Individual Psychotherapy - 45 min 10/19/2019 12:00:00 AM EST - 10/19/2019 12:00:00 AM EST [facility] ([facility]) Extended Individual Psychotherapy - 45 min 9 12:00:00 AM EST [facility] ([facility]) Results ID Date Data Source [id number] 10/09/2020 03:00:00 PM EST [facility] Name Value Range Interpretation Code Description Data Emily rce(s) Supporting Document(s) SARS coronavirus 2 RNA [facility] This lab was ordered by [facility] and reported by [facility]. ID Date Data Source [id number] 10/13/2019 08:24:01 AM EST [facility] In-House Blood TestsDate/Time Colle cted: October 13, 2019 8:24 AMTest Result Reference Range Normal ValueComments: [facility] left ac tolaterated well Thor Monterroso MA, October 13, 2019 8:24 AMAssessment & Plan Orders:[id number] Vst-Est Level I [CPT-43090] 79767 - Venipuncture [CPT-27000] Electronically signed by Noemi IQBAL on at 3:52 PM Name Value Range Interpretation Code Description Data Emily rce(s) Supporting Document(s) ID Date Data Source [id number] 10/13/2019 08:15:00 AM EST [facility] Name Value Range Interpretation Code Description Data Emily rce(s) Supporting Document(s) HGBA1C 5.4 % N [facility] ID Date Data Source [id number] 10/13/2019 08:15:00 AM EST [facility] Name Value Range Interpretation Code Description Data Emily rce(s) Supporting Document(s) BG FASTING 102 mg/dL 70-100 H [facility] T4, FREE 1.02 ng/dL 0.76-1.46 N [facility] TSH 2.770 microintl units/mL 0.358-3.740 N [facility] VIT D25 TOT 26.4 ng/mL 30.0-100.0 L [facility] ID Date Data Source [id number] 10/13/2019 08:15:00 AM EST [facility] Name Value Range Interpretation Code Description Data Emily rce(s) Supporting Document(s) HCT 48.1 % 42.0-52.0 N [facility] HGB 15.9 g/dL 13.5-17.5 N [facility] MCH 33.1 G/DL pg 32.0-36.5 N [facility] MCHC 31.3 PG % 27.0-33.0 N [facility] PLATELETS 212 10 10*3/mm3 150-450 N [facility] RBC 5.08 10 10*6/mm3 4.30-6.10 N [facility] RDW 12.0 % 11.5-14.5 N [facility] WBC TOTAL 10.5 4.0-10.0 H [facility] Procedure Social History Code Duration Value Status Description Data Source(s ) Smoking 11/19/2019 12:00:00 AM EST Unknown if ever smoked comp leted Unknown if ever smoked [facility] ([facility]) Smoking 11/02/2019 12:00:00 AM EST Unknown if ever smoked comp leted Unknown if ever smoked [facility] ([facility]) Smoking 10/19/2019 12:00:00 AM EST Unknown if ever smoked comp leted Unknown if ever smoked [facility] ([facility]) Vital Signs ID Date Data Source UNK Name Value Range Interpretation Code Description Data Source(s) Body mass index (BMI) [Ratio] 25.7 kg/m2 25.7 k g/m2 [facility] ([facility]) Body height 69 [in_i] 69 [in_i] [facility]) 5'9" Body weight 174.00 [lb_av] 174.00 [lb_av] AINSLEYEN T ([facility])
--- OUTSIDE RECORDS SUMMARY | 2020-12-01 15:53 | CCD ---
Author Author [facility] Organization [employer] [facility] Address Unknown Phone Unavailable Care Team Providers Care Outreach Educator Name Role Phone Bisi Canales Unavailable PROBLEMS Type Condition ICD9-CM Code [id number] Code Onset Dates Condition S tatus SNOMED Code Notes Problem Cannabis abuse, unspecified F12.10 Active 3734 4004 Problem Bipolar disorder F31.9 Active [id number] ALLERGIES No Known Allergies ENCOUNTERS from 1989 to 2020-09-07 Encounter Location Date Provider Diagnosis [address] [address] Aug, Bisi Canales IMMUNIZATIONS No Information SOCIAL HISTORY Tobacco Use: Social History Observation Description Date Details (start date - stop date) Never Smoker Sex Assigned At : Social History Observation Description Sex Assigned At Unknown Education: Question Answer Notes Level of Education: Not finished High School GED Audit Question Answer Notes Total Score: 2 Interpretation: Alcohol Education Language: Question Answer Notes Languages spoken: Syrian Synagogue: Question Answer Notes Synagogue 33 None Sexual Hx: Question Answer Notes Had sex in the last 12 months (vaginal, oral, or anal)? Yes Have you ever had an STD? No with Women only Use protection? Yes How often? Most of the time Drug and Alcohol Question Answer Notes Total Score: 3 Interpretation: Moderate level Alcohol Screening: Question Answer Notes Did you have a drink containing alcohol in the past year? Ye s Points 0 Interpretation Negative How often did you have six or more drinks on one occas ion in the past year? Never (0 points) How many drinks did you have on a typica l day when you were drinking in the past year? 1 or 2 (0 points) Tobacco Use: Question Answer Notes Are you a: never smoker REASON FOR REFERRAL No Information VITAL SIGNS No information MEDICATIONS No Information PROCEDURES No Information RESULTS No Results REASON FOR VISIT referral - need more documentation MEDICAL (GENERAL) HISTORY Type Description Date Medical History Marijuana use Medical History Suicidal ideation -admission to [facility] Medical History Bipolar Medical History Depression Surgical History No Surgical history information Hospitalization History Multiple [facility] Unable to rememb er dates Goals Section No Information Health Concerns No Information MEDICAL EQUIPMENT No Information MENTAL STATUS No Information FUNCTIONAL STATUS No Information ASSESSMENTS No Information PLAN OF TREATMENT Next Appt Details Provider Name:Carmita Roque, 2019-11 01:00:00 PM, [facility], [place], [address], Insurance Providers Payer Name Payer Address Payer Phone Insured Name Patient Relati onship to Insured Coverage Start Date Coverage End Date [facility] [address] [facility] [id number] GREGORIO JOSHUA self
--- OUTSIDE RECORDS SUMMARY | 2020-12-01 15:53 | CCD ---
Author Author [facility] Organization [facility] Address Unknown Phone Unavailable Care Team Providers Care Hydroponics Grower Name Role Phone Bisi Canales Unavailable PROBLEMS Type Condition ICD9-CM Code [id number] Code Onset Dates Condition S tatus SNOMED Code Notes Problem Cannabis abuse, unspecified F12.10 Active 3734 4004 Problem Bipolar disorder F31.9 Active [id number] ALLERGIES No Known Allergies ENCOUNTERS from 1989 to 2020-09-22 Encounter Location Date Provider Diagnosis [address] [address] Aug, Bisi Canales IMMUNIZATIONS No Information SOCIAL [...] Language: Question Answer Notes Languages spoken: Syrian Gnosticist: Question Answer Notes Gnosticist 33 None Sexual Hx: Question Answer Notes [...] Information RESULTS No Results REASON FOR VISIT f/u MEDICAL (GENERAL) HISTORY Type Description Date Medical History Marijuana use Medical History Suicidal ideation -admission to [facility] Medical History Bipolar Medical History Depression Surgical History No Surgical history information Hospitalization History Multiple [facility] Unable to rememb er dates Goals Section No Information Health Concerns No Information MEDICAL EQUIPMENT No Information MENTAL STATUS No Information FUNCTIONAL STATUS No Information ASSESSMENTS No Information PLAN OF TREATMENT No Information Insurance Providers Payer Name Payer Address Payer Phone Insured Name Patient Relati onship to Insured Coverage Start Date Coverage End Date [facility] COMMUNITY PLAN [facility] [address] [facility] [phone] GREGORIO JOSHUA self
[2020-12-01] MEDS ORDERED: NS 1,000 ML IV ONE (16:45)
--- NOTE | 2020-12-01 17:06 | REP ---
INDICATION: syncope v seizure. COMPARISON: Comparison chest x-ray October 11, 2020. TECHNIQUE: Two views.. FINDINGS: The lungs are well inflated and free of infiltrate. The pleural angles are sharp. The heart size is normal. Pulmonary vasculature is not increased. No significant bony abnormality is seen. IMPRESSION: Negative chest x-ray. <Electronically signed by Chapin Bravo > 12/01/20 [id number]
--- NOTE | 2020-12-01 17:19 | REPVR ---
PROCEDURE INFORMATION: Exam: CT Maxillofacial Without Contrast Exam date and time: 12/01/2020 4:51 PM Age: 30 years old Clinical indication: Injury or trauma; Other: Poss. Seizure; Blunt trauma (contusions or hematomas); Eyelid; Upper left; Injury details: PT has bruising he is unsure how he got TECHNIQUE: Imaging protocol: Computed tomography images of the face without contrast. Radiation optimization: All CT scans at this facility use at least one of these dose optimization techniques: automated exposure control; mA and/or kV adjustment per patient size (includes targeted exams where dose is matched to clinical indication); or iterative reconstruction. COMPARISON: No relevant prior studies available. FINDINGS: Orbital cavity: Orbits are normal. Globes are unremarkable. Bones/joints: No acute fracture. Paranasal sinuses: Normal. No air-fluid levels. Soft tissues: Unremarkable. IMPRESSION: No acute maxillofacial fracture. Electronically signed by: Fabian Henson On 12/01/2020 19:09:48 PM
--- NOTE | 2020-12-01 17:20 | REPVR ---
PROCEDURE INFORMATION: Exam: CT Head Without Contrast Exam date and time: 12/01/2020 4:51 PM Age: 30 years old Clinical indication: Injury or trauma; Other: Poss seizure; Blunt trauma (contusions or hematomas) TECHNIQUE: Imaging protocol: Computed tomography of the head without contrast. Radiation optimization: All CT scans at this facility use at least one of these dose optimization techniques: automated exposure control; mA and/or kV adjustment per patient size (includes targeted exams where dose is matched to clinical indication); or iterative reconstruction. COMPARISON: CT Head without contrast 10/07/2020 11:52 AM FINDINGS: Brain: No intracranial hemorrhage or extra-axial fluid collection. No evidence of mass effect or midline shift. Arguello-white matter differentiation is intact. Cerebral ventricles: No ventriculomegaly. Bones/joints: No acute osseus lesion or fracture. Paranasal sinuses: Visualized sinuses are unremarkable. Mastoid air cells: Unremarkable. Soft tissues: Unremarkable. IMPRESSION: No acute intracranial pathology. Electronically signed by: Fabian Henson On 12/01/2020 17:20:14 PM
[2020-12-01 17:33] LABS: BASO % 0.4 % (0.0-1.0); EOS % 0.3 % (0.0-3.0); HEMATOCRIT 42.9 % (42.0-52.0); HEMOGLOBIN 14.4 g/dl (13.5-17.5); LYMPH % 27.6 % (24.0-44.0); MEAN CORPUSCULAR HGB CONC 33.6 g/dl (32.0-36.5); MEAN CORPUSCULAR VOLUME 92.3 fl (80.0-96.0); MONO # 0.7 10^3/uL (0.0-0.8); NEUTROPHILS # 4.5 10^3/uL (1.5-8.5); NEUTROPHILS % 61.6 % (36.0-66.0); PLATELET COUNT, AUTOMATED 211 10^3/uL (150-450); RED BLOOD COUNT 4.65 10^6/uL (4.30-6.10); WHITE BLOOD COUNT 7.2 10^3/uL (4.0-10.0)
[2020-12-01 18:02] LABS: ALBUMIN 4.3 GM/DL (3.2-5.2); ALT/SGPT 25 U/L (12-78); BILIRUBIN,DIRECT 0.1 MG/DL (0.0-0.2); BILIRUBIN,TOTAL 0.4 MG/DL (0.2-1.0); BLOOD UREA NITROGEN 11 MG/DL (7-18); CALCIUM LEVEL 9.6 MG/DL (8.5-10.1); CARBON DIOXIDE LEVEL 29 MEQ/L (21-32); CHLORIDE LEVEL 103 MEQ/L (98-107); CREATININE FOR GFR 0.84 MG/DL (0.70-1.30); GLOMERULAR FILTRATION RATE > 60.0 (>60); GLUCOSE, FASTING 101 MG/DL (70-100); MAGNESIUM LEVEL 2.1 MG/DL (1.8-2.4); PHOSPHORUS LEVEL 2.8 MG/DL (2.5-4.9); POTASSIUM SERUM 3.6 MEQ/L (3.5-5.1); SODIUM LEVEL 140 MEQ/L (136-145); TOTAL PROTEIN 7.3 GM/DL (6.4-8.2)
--- OUTSIDE RECORDS SUMMARY | 2020-12-01 18:03 | CCD ---
Author Author [facility] Organization [facility] Address Unknown Phone Unavailable Care Team Providers Care Continuous Miner Name Role Phone Anushka Dias Unavailable Unavailable Anushka Dias Unavailable Unavailable Anushka Dias Unavailable Unavailable Arun, A Noemi CLIENT STRATEGIST Unavailable Unavailable Arun, A Noemi CLIENT STRATEGIST Unavailable Unavailable Arun, A Noemi CLIENT STRATEGIST Unavailable Unavailable Arun, A Noemi CLIENT STRATEGIST Unavailable Unavailable Arun, A Noemi CLIENT STRATEGIST Unavailable Unavailable Arun, A Noemi CLIENT STRATEGIST Unavailable Unavailable Arun, A Noemi CLIENT STRATEGIST Unavailable Unavailable Arun, A Noemi CLIENT STRATEGIST Unavailable Unavailable [place], A Noemi CLIENT STRATEGIST Unavailable Unavailable Arun, A Noemi CLIENT STRATEGIST Unavailable Unavailable [place], A Noemi CLIENT STRATEGIST Unavailable Unavailable [place], A Noemi CLIENT STRATEGIST Unavailable Unavailable Arun, A Noemi CLIENT STRATEGIST Unavailable Unavailable Arun, A Noemi CLIENT STRATEGIST Unavailable Unavailable Arun, A Noemi CLIENT STRATEGIST Unavailable Unavailable Arun, A Noemi CLIENT STRATEGIST Unavailable Unavailable Arun, A Noemi CLIENT STRATEGIST Unavailable Unavailable Arun, A Noemi CLIENT STRATEGIST Unavailable Unavailable Arun, A Noemi CLIENT STRATEGIST Unavailable Unavailable Arun, A Noemi CLIENT STRATEGIST Unavailable Unavailable Arun, A Noemi CLIENT STRATEGIST Unavailable Unavailable Arun, A Noemi CLIENT STRATEGIST Unavailable Unavailable Arun, A Noemi CLIENT STRATEGIST Unavailable Unavailable Arun, A Noemi CLIENT STRATEGIST Unavailable Unavailable Izadyar, Manuel Unavailable Unavailable Izadyar, [...] Unavailable Unavailable LaBarge, Baltazar Unavailable Arun, Noemi CLIENT STRATEGIST CLIENT STRATEGIST Unavailable Unavailable Re-disclosure Warning The records that [...] is protected by Article 27-F of the [facility] Public Health law. If you continue you may have access to information: Regarding HIV / AIDS; Provided by facilities licensed or operated by the [facility] Office of Mental Health; or Provided by the [facility] Office for People With Developmental Disabilities. If such information is present, then the following [facility] mandated warning applies: This information has been [...] law may result in a fine or half-way sentence or both. A general authorization for the release of medical or other information is NOT sufficient authorization for further disc losure. Encounters Encounter Providers Location Date Indications Data Source(s ) Outpatient Attender: Manuel Escobar 12/12/2020 12:00:00 A M [facility] [place] [address] [facility] [place] [address] 09/07/2020 12:00:00 AM EDT eCW1 ([facility]) [place] [address] [facility] [place] [address] 08/26/2020 12:00:00 AM EDT eCW1 ([facility]) [place] [address] [facility] [place] [address] 08/10/2020 12:00:00 AM EDT eCW1 ([facility]) Outpatient [facility] 08/04/2020 12:02:14 A M EDT [facility] Outpatient Attender: Noemi Dias [facility] 07/25/2020 03:0 4:01 PM EDT [facility] Outpatient Attender: FARIDA Arun [facility] 04/19/2020 07:36:50 P M EDT [facility] Outpatient Attender: FARIDA Arun [facility] 04/09/2020 12:10:57 A M EDT [facility] Brief Individual Psychotherapy - 30 min Attender: Baltazar roger [facility] 11/19/2019 02:00:00 AM EST - 11/19/2019 02:00:00 AM EST [facility] ([facility]) Attender: Baltazar LaBarge 11/19/2019 12:00:00 AM EST [facility] ([facility]) Outpatient Attender: FARIDA Dias [facility] 11/17/2019 12:08:01 P M [facility] Outpatient Attender: Noemi Dias [facility] 11/17/2019 12:0 7:02 PM [facility] Brief Individual Psychotherapy - 30 min Attender: Baltazar roger [facility] 11/02/2019 10:15:00 AM EST - 11/02/2019 10:15:00 AM EST [facility] ([facility]) Attender: Baltazar LaBarge 11/02/2019 12:00:00 AM EST [facility] ([facility]) Outpatient Attender: FARIDA Dias [facility] 11/01/2019 01:36:02 A M [facility] Outpatient Attender: Noemi Dias [facility] 11/01/2019 01:3 6:01 AM [facility] Outpatient Attender: [facility] 11/01/2019 01:3 5:01 AM [facility] Outpatient Attender: [facility] 11/01/2019 01:35:00 A M [facility] Outpatient Attender: [facility] 10/26/2019 03:5 3:01 PM [facility] Extended Individual Psychotherapy - 45 min Attender: Johanny [facility] 10/19/2019 01:45:00 AM EST - 10/19/2019 01:45:00 AM EST [facility] ([facility]) Attender: Baltazar Medina 10/19/2019 12:00:00 AM EST [facility] ([facility]) Outpatient 10/14/2019 05:31:00 AM [facility] Outpatient Attender: FARIDA IQBAL 10/13/2019 08:06:01 A M [facility] Outpatient Attender: FARIDA MONGE 10/13/2019 08:05:03 A [facility] Outpatient Attender: FARIDA IQBAL 10/09/2019 02:26:00 P [facility] Outpatient Attender: FARIDA IQBAL 10/06/2019 07:38:01 A [facility] Outpatient Attender: oNemi IQBAL 10/05/2019 08:0 1:07 PM [facility] Outpatient Attender: FARIDA IQBAL 10/05/2019 08:01:04 P [facility] Medications Medication Brand Name Start Date Product [...] A DAY FOR 5 DAYS SOLD: 06/24/2020 [facility] 3.5-10,000-1 mg/mL-unit/mL-% 06/24/2020 12:00:00 AM EDT [...] A DAY FOR 10 DAYS SOLD: 06/23/2020 [facility] Insurance Providers Payer name Policy type / Coverage type Policy ID Covered green party ID Covered green party's relationship to argueta Policy Argueta Plan Information [facility] [id number] SP [id number] [facility] O [id number] S [id number] [facility] [id number] SP [id number] Managed Care - [facility] Community Plan P [id number] S [id number] Medicaid S [id number] S [id number] Managed Care - [facility] Community Plan P [id number] S [id number] [facility] [id number] SP [id number] Medicaid S [id number] S [id number] Managed Care - [facility] Community Plan P [id number] S [id number] [place] Part B [id number] Self [id number] [facility] Community Plan Commercial [id number] Self [id number] ANSI-Medicaid [id number] ANSI-Medicaid [id number] MEDICAID [id number] Brittany [id number] Managed Care - Community Plan [facility] P [id number] S [id number] [facility] [id number] SP [id number] MEDICAID [id number] SP [id number] MEDICAID M [id number] S [id number] [facility] [id number] SP [id number] [facility] O [id number] O [id number] [facility] [id number] Patient [id number] [facility] COMMUNITY [id number] Patient [id number] SELF PAY SELF Patient SELF [facility] [id number] Patient [id number] Medicaid P [id number] S [id number] Medicaid P [id number] S [id number] Problems, Conditions, and Diagnoses Code Display Name Description Problem Type Effective Dates Data Source(s) F12.20 Cannabis dependence, uncomplicated Cannabis Use Disorder, Moderate Condition 11/19/2019 12:00:00 AM EST [facility] ([facility]) F34.1 Dysthymic disorder Persistent Depressive Disorder (Dys thymia) Condition 11/19/2019 12:00:00 AM EST [facility] ([facility]) [id number] Drug-induced depressive state Drug-induced depressive state Problem 10/20/2019 12:00:00 AM EST [facility] ([facility]) [id number] Electrocardiogram abnormal Electrocardiogram abnormal Problem 10/20/2019 12:00:00 AM EST [facility] ([facility]) [id number] Syncope and collapse Syncope and collapse Problem 10/20/2019 12:00:00 AM EST [facility] ([facility]) Surgeries/Procedures Procedure Description Date Indications Data Source(s) Brief Individual Psychotherapy - 30 min 11/19/2019 12:00:00 AM EST - 11/19/2019 12:00:00 AM EST [facility] ([facility]) Brief Individual Psychotherapy - 30 min 11/19/2019 12: 00:00 AM EST [facility] ([facility]) Brief Individual Psychotherapy - 30 min 11/02/2019 12:00:00 AM EST - 11/02/2019 12:00:00 AM EST [facility] ([facility]) Brief Individual Psychotherapy - 30 min 11/02/2019 12: 00:00 AM EST [facility] ([facility]) Extended Individual Psychotherapy - 45 min 10/19/2019 12:00:00 AM EST - 10/19/2019 12:00:00 AM EST [facility] ([facility]) Extended Individual Psychotherapy - 45 min 9 12:00:00 AM EST [facility] ([facility]) Results ID Date Data Source [id number] 10/09/2020 03:00:00 PM EST [facility] Name Value Range Interpretation Code Description Data Emily rce(s) Supporting Document(s) SARS coronavirus 2 RNA [facility] This lab was ordered by [facility] and reported by [facility]. ID Date Data Source [id number] 10/13/2019 08:24:01 AM EST [facility] Labs In-House Blood TestsDate/Time Colle cted: October 13, 2019 8:24 AMTest Result Reference Range Normal ValueComments: [facility] tolaterated well Thor Monterroso MA, October 13, 2019 8:24 AMAssessment & Plan Orders:[id number] Vst-Est Level I [[id number]] [id number] - Venipuncture [[id number]] Electronically signed by Noemi IQBAL on at 3:52 PM Name Value Range Interpretation Code Description Data Emily rce(s) Supporting Document(s) ID Date Data Source [id number] 10/13/2019 08:15:00 AM EST [facility] Name Value Range Interpretation Code Description Data Emily rce(s) Supporting Document(s) HGBA1C 5.4 % N [facility] ID Date Data Source [id number] 10/13/2019 08:15:00 AM EST [facility] Name Value Range Interpretation Code Description Data Emily rce(s) Supporting Document(s) BG FASTING 102 mg/dL 70-100 H [facility] T4, FREE 1.02 ng/dL 0.76-1.46 N [facility] TSH 2.770 microintl units/mL 0.358-3.740 N [facility] VIT D25 TOT 26.4 ng/mL 30.0-100.0 L [facility] ID Date Data Source [id number] 10/13/2019 08:15:00 AM EST [facility] Name Value Range Interpretation Code Description Data Emily rce(s) Supporting Document(s) HCT 48.1 % 42.0-52.0 N [facility] HGB 15.9 g/dL 13.5-17.5 N [facility] MCH 33.1 G/DL pg 32.0-36.5 N [facility] MCHC 31.3 PG % 27.0-33.0 N [facility] PLATELETS 212 10 10*3/mm3 150-450 N [facility] RBC 5.08 10 10*6/mm3 4.30-6.10 N [facility] RDW 12.0 % 11.5-14.5 N [facility] WBC TOTAL 10.5 4.0-10.0 H [facility] Procedure Social History Code Duration Value Status Description Data Source(s ) Smoking 11/19/2019 12:00:00 AM EST Unknown if ever smoked comp leted Unknown if ever smoked [facility] ([facility]) Smoking 11/02/2019 12:00:00 AM EST Unknown if ever smoked comp leted Unknown if ever smoked [facility] ([facility]) Smoking 10/19/2019 12:00:00 AM EST Unknown if ever smoked comp leted Unknown if ever smoked [facility] ([facility]) Vital Signs ID Date Data Source UNK Name Value Range Interpretation Code Description Data Source(s) Body mass index (BMI) [Ratio] 25.7 kg/m2 25.7 k g/m2 [facility] ([facility]) Body height 69 [in_i] 69 [in_i] [facility] ([facility]) 5'9" Body weight 174.00 [lb_av] 174.00 [lb_av] AINSLEYEN T ([facility])
[2020-12-01 18:06] LABS: INR 0.92; PROTHROMBIN TIME 12.6 SECONDS (12.5-14.3)
--- NOTE | 2020-12-01 18:36 | ECGEPIP ---
[facility] - ED Test Date: 2020-12-01 Pat Name: GREGORIO JOSHUA Department: Room: - Gender: Male Manager Advertising: MICHELLE : 1990 Requested By: MINERVA Shaw Order Number: [id number] Reading MD: Ferdinand Waters Measurements Intervals [place] Rate: 62 P: 6 CO: 153 QRS: -14 QRSD: 90 T: 24 QT: 386 QTc: 393 Interpretive Statements SINUS RHYTHM POSSIBLE RIGHT VENTRICULAR CONDUCTION DELAY Similar to tracing done 09-28-19 Electronically Signed on 12-01-2020 18:35:54 EST by Ferdinand Waters
[2020-12-01 19:02] LABS: AMPHETAMINES LEVEL URINE NEGATIVE (NEGATIVE); BARBITURATES URINE NEGATIVE (NEGATIVE); BENZODIAZEPINES URINE NEGATIVE (NEGATIVE); CANNABINOIDS URINE POSITIVE (NEGATIVE); COCAINE METABOLITE URINE NEGATIVE (NEGATIVE); METHADONE URINE NEGATIVE (NEGATIVE); OPIATES URINE NEGATIVE (NEGATIVE); PHENCYCLIDINE URINE NEGATIVE (NEGATIVE)
[2020-12-01 19:45] VITALS: BP 126/75
[2020-12-01] MEDS ORDERED: levETIRAcetam INJection 750 MG in D5W 100 ML IV ONE (19:45)
[2020-12-01] MEDS ORDERED: KEPP1TAB2 PO (20:06)
== END 2020-12-01 19:50 | disposition left against medical advice (07) ==
LOC: M ED 15:46
DX: Z53.9 Procedure and treatment not carried out, unspecified reason (principal); G40.909 Epilepsy, unspecified, not intractable, without status epilepticus; F32.9 Major depressive disorder, single episode, unspecified; M54.5 Low back pain; F17.200 Nicotine dependence, unspecified, uncomplicated; Z79.899 Other long term (current) drug therapy

== ENCOUNTER → 2021-01-11 | Outpatient (REF) | payer OTHER, MEDICAID ==
[~2021-01-11] MED LIST changes: +KEPP1TAB2 PO
[2021-01-11 13:32] LABS: BASO # 0.1 10^3/uL (0.0-0.2); BASO % 0.9 % (0.0-1.0); EOS # 0.2 10^3/uL (0.0-0.5); EOS % 2.3 % (0.0-3.0); HEMATOCRIT 45.9 % (42.0-52.0); LYMPH # 3.2 10^3/uL (1.5-5.0); LYMPH % 41.3 % (24.0-44.0); MEAN CORPUSCULAR HEMOGLOBIN 31.1 pg (27.0-33.0); MEAN CORPUSCULAR HGB CONC 32.7 g/dl (32.0-36.5); MONO # 0.9 10^3/uL (0.0-0.8); MONO % 11.4 % (2.0-8.0); NEUTROPHILS # 3.4 10^3/uL (1.5-8.5); NEUTROPHILS % 43.8 % (36.0-66.0); PLATELET COUNT, AUTOMATED 202 10^3/uL (150-450); RED BLOOD COUNT 4.83 10^6/uL (4.30-6.10); WHITE BLOOD COUNT 7.7 10^3/uL (4.0-10.0)
[2021-01-11 13:51] LABS: ALBUMIN 3.9 GM/DL (3.2-5.2); ALT/SGPT 21 U/L (12-78); BILIRUBIN,TOTAL 0.1 MG/DL (0.2-1.0); BLOOD UREA NITROGEN 21 MG/DL (7-18); CALCIUM LEVEL 9.5 MG/DL (8.5-10.1); CARBON DIOXIDE LEVEL 29 MEQ/L (21-32); CHLORIDE LEVEL 104 MEQ/L (98-107); CREATININE FOR GFR 0.96 MG/DL (0.70-1.30); GLOMERULAR FILTRATION RATE > 60.0 (>60); GLUCOSE, FASTING 82 MG/DL (70-100); POTASSIUM SERUM 4.2 MEQ/L (3.5-5.1); SODIUM LEVEL 138 MEQ/L (136-145); TOTAL PROTEIN 7.1 GM/DL (6.4-8.2)
[2021-01-11 14:33] LABS: HEPATITIS C VIRUS ABY INDEX < 0.0 INDEX (<0.8)
[2021-01-11 14:34] LABS: HIV 1&2 SCREEN CENTAUR NEGATIVE (NEGATIVE)
== END ==
LOC: M LAB REF 12:49
PROVIDERS: ATTEND Nurse Practitioner Family
DX: Z00.00 Encounter for general adult medical examination without abnormal findings (principal); G40.909 Epilepsy, unspecified, not intractable, without status epilepticus

== ENCOUNTER 2021-05-12 01:03 | Emergency (ER) | payer MEDICAID, OTHER ==
[~2021-05-12] VITALS: Ht 175.3 cm; Wt 87.6 kg
[2021-05-12 01:03] VITALS: BP 132/73
[2021-05-12] MEDS ORDERED: DEPA500T2 PO (01:08)
--- NOTE | 2021-05-12 05:27 | REPVR ---
PROCEDURE INFORMATION: Exam: XR Right Tibia and Fibula Exam date and time: 05/12/2021 3:14 AM Age: 31 years old Clinical indication: Other: Laceration TECHNIQUE: Imaging protocol: XR Right tibia and fibula. Views: 2 views. COMPARISON: No relevant prior studies available. FINDINGS: Bones/joints: Joint spaces are normal. No fracture or malalignment. Soft tissues: Normal. IMPRESSION: No fracture or malalignment. Electronically signed by: Luis Jimenez On 05/12/2021 05:27:07 AM
== END 2021-05-12 04:30 | disposition left against medical advice (07) ==
LOC: M ED 01:03
DX: Z53.21 Procedure and treatment not carried out due to patient leaving prior to being seen by health care provider (principal)

== ENCOUNTER 2021-06-12 14:08 | Emergency (ER) | payer MEDICAID, OTHER ==
[~2021-06-12] VITALS: Ht 175.3 cm; Wt 85.2 kg
[2021-06-12] MEDS ORDERED: LAMI25TA PO (15:48)
[2021-06-12] MEDS ORDERED: CEPHALEXIN 500 MG CAP PO ONE (21:10)
[2021-06-12] MEDS ORDERED: CEPH500C PO (21:12)
[2021-06-12 21:22] VITALS: BP 112/68
--- NOTE | 2021-06-12 21:46 | REPVR ---
PROCEDURE INFORMATION: Exam: XR Right Tibia and Fibula Exam date and time: 06/12/2021 8:42 PM Age: 31 years old Clinical indication: Other: Fall 3 days with open wound; Additional info: Fall 3 days open wound TECHNIQUE: Imaging protocol: XR Right tibia and fibula. Views: 2 views. COMPARISON: CR Tibia, Fibula lower leg RIGHT 05/12/2021 2:43 AM FINDINGS: Bones/joints: Normal. Soft tissues: Normal. IMPRESSION: No acute findings. Electronically signed by: Han Craig On 06/12/2021 21:45:55 PM
== END 2021-06-12 21:27 | disposition home or self-care (01) ==
LOC: M ED 14:08
DX: L97.919 Non-pressure chronic ulcer of unspecified part of right lower leg with unspecified severity (principal); W01.0XXA Fall on same level from slipping, tripping and stumbling without subsequent striking against object, initial encounter; Y92.830 Public park as the place of occurrence of the external cause; Y93.9 Activity, unspecified; Y99.8 Other external cause status

== ENCOUNTER 2021-07-27 13:04 | Emergency (ER) | payer OTHER ==
[~2021-07-27] VITALS: Ht 175.3 cm; Wt 80.4 kg
[~2021-07-27 13:04] MED LIST changes: +CEPH500C PO; +LAMI25TA PO
[2021-07-27] MEDS ORDERED: DOCU100C16 (13:20)
[2021-07-27] MEDS ORDERED: GI COCKTAIL 50ML BTL(HYOSCYAMINE/MAALOX/LIDOCAINE VISCOUS)(1:3:1) PO ONE (16:10)
[2021-07-27] MEDS ORDERED: ONDANSETRON 4MG/2ML VIAL IV ONE (16:10)
[2021-07-27] MEDS ORDERED: NS 1,000 ML IV ONE (16:10)
[2021-07-27] MEDS ORDERED: PANTOPRAZOLE 40MG VIAL (C9113 PER 1) IV ONE (16:10)
[2021-07-27] MEDS ORDERED: KETOROLAC 30 MG/ML 1ML VIAL IV ONE (16:10)
[2021-07-27] MEDS ORDERED: ISOVUE-370 76% 100ML VIAL As Ordered ONE (17:02)
[2021-07-27 17:26] LABS: BASO % 0.6 % (0.0-1.0); EOS # 0.1 10^3/uL (0.0-0.5); EOS % 1.3 % (0.0-3.0); HEMATOCRIT 44.3 % (42.0-52.0); HEMOGLOBIN 14.9 g/dl (13.5-17.5); LYMPH # 2.5 10^3/uL (1.5-5.0); LYMPH % 39.3 % (24.0-44.0); MEAN CORPUSCULAR HGB CONC 33.6 g/dl (32.0-36.5); MEAN CORPUSCULAR VOLUME 95.3 fl (80.0-96.0); MONO # 0.9 10^3/uL (0.0-0.8); MONO % 14.2 % (2.0-8.0); NEUTROPHILS # 2.8 10^3/uL (1.5-8.5); NEUTROPHILS % 44.3 % (36.0-66.0); PLATELET COUNT, AUTOMATED 235 10^3/uL (150-450); RED BLOOD COUNT 4.65 10^6/uL (4.30-6.10); WHITE BLOOD COUNT 6.3 10^3/uL (4.0-10.0)
[2021-07-27 17:49] LABS: ALBUMIN 3.9 GM/DL (3.2-5.2); ALT/SGPT 52 U/L (12-78); BILIRUBIN,DIRECT < 0.1 MG/DL (0.0-0.2); BILIRUBIN,TOTAL 0.4 MG/DL (0.2-1.0); LIPASE 50 U/L (73-393); TOTAL PROTEIN 7.8 GM/DL (6.4-8.2)
[2021-07-27 17:54] LABS: HEMOGLOBIN A1c 5.5 %
--- NOTE | 2021-07-27 18:11 | REPVR ---
PROCEDURE INFORMATION: Exam: CT Abdomen And Pelvis With Contrast Exam date and time: 07/27/2021 5:16 PM Age: 31 years old Clinical indication: Abdominal pain; Epigastric; Additional info: Epigastric pain TECHNIQUE: Imaging protocol: Computed tomography of the abdomen and pelvis with contrast. Radiation optimization: All CT scans at this facility use at least one of these dose optimization techniques: automated exposure control; mA and/or kV adjustment per patient size (includes targeted exams where dose is matched to clinical indication); or iterative reconstruction. Contrast material: ISOVUE 370; Contrast volume: 100 ml; Contrast route: INTRAVENOUS (IV); COMPARISON: CR Pelvis, complete 08/25/2019 5:13 PM FINDINGS: Lungs: Small noncalcified nodules right lung base measure less than 3 mm. These are likely postinflammatory. No follow-up suggested according to Fleischner guidelines. Liver: 7 mm cyst in the hepatic dome. There is a diffuse decrease in hepatic parenchymal density, consistent with steatosis. Gallbladder and bile ducts: Normal. No calcified stones. No ductal dilation. Pancreas: Normal. No ductal dilation. Spleen: Normal. No splenomegaly. Adrenal glands: Normal. No mass. Kidneys and ureters: Normal. No hydronephrosis. Stomach and bowel: Unremarkable. No obstruction. No mucosal thickening. Appendix: No evidence of appendicitis. Intraperitoneal space: Unremarkable. No free air. No significant fluid collection. Vasculature: Dilated IVC and hepatic veins may signify elevated right heart pressures. Lymph nodes: Unremarkable. No enlarged lymph nodes. Urinary bladder: Unremarkable as visualized. Reproductive: The prostate gland demonstrates mild hyperplasia. Bones/joints: Mild central spinal stenosis L3-L4 and L4-L5. Soft tissues: Unremarkable. IMPRESSION: 1. There is a diffuse decrease in hepatic parenchymal density, consistent with steatosis. 2. Mild prostatic hyperplasia. 3. No acute findings. Electronically signed by: Han Craig On 07/27/2021 18:11:29 PM
[2021-07-27] MEDS ORDERED: PANT40TA29 PO (18:53)
[2021-07-27] MEDS ORDERED: CARA1TAB6 PO (18:53)
[2021-07-27] MEDS ORDERED: ONDA4TAB6 PO (18:53)
[2021-07-27 19:36] VITALS: BP 126/73
--- NOTE | 2021-07-28 06:45 | ED PDOC ---
Post-Departure Follow-Up ct abd/p faxed to [facility] for fu Carlos Alvarez MD Jul 28, 2021 06:45
== END 2021-07-27 19:37 | disposition home or self-care (01) ==
LOC: M ED 13:04
DX: R10.13 Epigastric pain (principal); R56.9 Unspecified convulsions; F31.89 Other bipolar disorder; F12.10 Cannabis abuse, uncomplicated; Z79.899 Other long term (current) drug therapy
CPT/HCPCS: 74177; 80047; 80076; 81001; 83036; 83690; 85025; 96361; 96374; 96375; 99284; C9113; J1885; J2405; Q9967

== ENCOUNTER → 2021-10-03 | Outpatient (CLI) | payer OTHER ==
[~2021-10-03] MED LIST changes: +CARA1TAB6 PO; +DOCU100C16; +ONDA4TAB6 PO; +PANT40TA29 PO
[2021-10-03 14:54] LABS: HEMATOCRIT 43.5 % (42.0-52.0); HEMOGLOBIN 14.5 g/dl (13.5-17.5); MEAN CORPUSCULAR HEMOGLOBIN 31.7 pg (27.0-33.0); MEAN CORPUSCULAR HGB CONC 33.3 g/dl (32.0-36.5); PLATELET COUNT, AUTOMATED 184 10^3/uL (150-450); RED BLOOD COUNT 4.58 10^6/uL (4.30-6.10); WHITE BLOOD COUNT 10.1 10^3/uL (4.0-10.0)
[2021-10-03 15:25] LABS: ALBUMIN 4.1 GM/DL (3.2-5.2); ALT/SGPT 26 U/L (12-78); BILIRUBIN,TOTAL 0.2 MG/DL (0.2-1.0); BLOOD UREA NITROGEN 16 MG/DL (7-18); CARBON DIOXIDE LEVEL 32 MEQ/L (21-32); CHLORIDE LEVEL 104 MEQ/L (98-107); CREATININE FOR GFR 1.06 MG/DL (0.70-1.30); GLOMERULAR FILTRATION RATE > 60.0 (>60); GLUCOSE, FASTING 83 MG/DL (70-100); POTASSIUM SERUM 4.3 MEQ/L (3.5-5.1); SODIUM LEVEL 139 MEQ/L (136-145); TOTAL PROTEIN 7.5 GM/DL (6.4-8.2); VALPROIC ACID (DEPAKOTE) 102.3 UG/ML (50.0-100.0)
== END ==
LOC: M LAB 14:09
PROVIDERS: ATTEND Psychiatry & Neurology Clinical Neurophysiology
DX: G40.009 Localization-related (focal) (partial) idiopathic epilepsy and epileptic syndromes with seizures of localized onset, not intractable, without status epilepticus (principal)

== ENCOUNTER → 2021-10-26 | Outpatient (REF) | LOC: M LAB 11:22 | PROVIDERS: ATTEND Nurse Practitioner Adult Health | DX: Z02.1 Encounter for pre-employment examination (principal) ==

== ENCOUNTER → 2021-12-16 | Outpatient (CLI) | payer OTHER ==
[2021-12-16 13:33] LABS: HEMATOCRIT 41.7 % (42.0-52.0); HEMOGLOBIN 14.2 g/dl (13.5-17.5); MEAN CORPUSCULAR HEMOGLOBIN 31.9 pg (27.0-33.0); MEAN CORPUSCULAR HGB CONC 34.1 g/dl (32.0-36.5); MEAN CORPUSCULAR VOLUME 93.7 fl (80.0-96.0); PLATELET COUNT, AUTOMATED 185 10^3/uL (150-450); RED BLOOD COUNT 4.45 10^6/uL (4.30-6.10); WHITE BLOOD COUNT 5.9 10^3/uL (4.0-10.0)
[2021-12-16 14:04] LABS: ALBUMIN 3.8 GM/DL (3.2-5.2); ALT/SGPT 33 U/L (12-78); BILIRUBIN,TOTAL 0.2 MG/DL (0.2-1.0); BLOOD UREA NITROGEN 15 MG/DL (7-18); CALCIUM LEVEL 9.4 MG/DL (8.5-10.1); CARBON DIOXIDE LEVEL 31 MEQ/L (21-32); CHLORIDE LEVEL 105 MEQ/L (98-107); CREATININE FOR GFR 1.05 MG/DL (0.70-1.30); GLOMERULAR FILTRATION RATE > 60.0 (>60); GLUCOSE, FASTING 115 MG/DL (70-100); POTASSIUM SERUM 4.3 MEQ/L (3.5-5.1); SODIUM LEVEL 139 MEQ/L (136-145); TOTAL PROTEIN 7.3 GM/DL (6.4-8.2); VALPROIC ACID (DEPAKOTE) 70.5 UG/ML (50.0-100.0)
== END ==
LOC: M LAB 13:02
PROVIDERS: ATTEND Psychiatry & Neurology Clinical Neurophysiology
DX: G43.009 Migraine without aura, not intractable, without status migrainosus (principal)

== ENCOUNTER → 2021-12-21 | Outpatient (CLI) | payer OTHER ==
[~2021-12-21] MED LIST changes: +E-Z-GAS II EFFERVESCENT PACKET (SODIUM BICARB./CITRIC ACID/SIMETHICONE) As Ordered ONE; +E-Z-HD 98% w/w 340GM SUSP BTL As Ordered ONE; +E-Z-PAQUE 96% w/w SUSP 176GM BTL As Ordered ONE
== END ==
LOC: M RAD 08:47
PROVIDERS: ATTEND Family Medicine Addiction Medicine
DX: R11.0 Nausea (principal)

== ENCOUNTER → 2022-03-08 | Outpatient (CLI) | payer OTHER ==
[~2022-03-08] MED LIST changes: -E-Z-GAS II EFFERVESCENT PACKET (SODIUM BICARB./CITRIC ACID/SIMETHICONE) As Ordered ONE; -E-Z-HD 98% w/w 340GM SUSP BTL As Ordered ONE; -E-Z-PAQUE 96% w/w SUSP 176GM BTL As Ordered ONE
[2022-03-08 16:07] LABS: HEMATOCRIT 41.7 % (42.0-52.0); HEMOGLOBIN 14.1 g/dl (13.5-17.5); MEAN CORPUSCULAR HEMOGLOBIN 32.3 pg (27.0-33.0); MEAN CORPUSCULAR HGB CONC 33.8 g/dl (32.0-36.5); MEAN CORPUSCULAR VOLUME 95.6 fl (80.0-96.0); PLATELET COUNT, AUTOMATED 193 10^3/uL (150-450); RED BLOOD COUNT 4.36 10^6/uL (4.30-6.10); WHITE BLOOD COUNT 6.7 10^3/uL (4.0-10.0)
[2022-03-08 16:36] LABS: ALBUMIN 3.6 GM/DL (3.2-5.2); ALT/SGPT 25 U/L (12-78); BILIRUBIN,TOTAL 0.2 MG/DL (0.2-1.0); BLOOD UREA NITROGEN 17 MG/DL (7-18); CARBON DIOXIDE LEVEL 29 MEQ/L (21-32); CHLORIDE LEVEL 104 MEQ/L (98-107); CREATININE FOR GFR 0.94 MG/DL (0.70-1.30); GLOMERULAR FILTRATION RATE > 60.0 (>60); GLUCOSE, FASTING 88 MG/DL (70-100); SODIUM LEVEL 139 MEQ/L (136-145); TOTAL PROTEIN 7.1 GM/DL (6.4-8.2); VALPROIC ACID (DEPAKOTE) 75.4 UG/ML (50.0-100.0)
== END ==
LOC: M LAB 15:23
PROVIDERS: ATTEND Psychiatry & Neurology Clinical Neurophysiology
DX: G40.009 Localization-related (focal) (partial) idiopathic epilepsy and epileptic syndromes with seizures of localized onset, not intractable, without status epilepticus (principal)

== ENCOUNTER → 2022-03-29 | Outpatient (CLI) | payer OTHER | LOC: M RAD 11:53 | PROVIDERS: ATTEND Family Medicine Addiction Medicine | DX: R11.0 Nausea (principal); Z53.9 Procedure and treatment not carried out, unspecified reason ==

== ENCOUNTER → 2022-04-30 | Outpatient (CLI) | payer OTHER | LOC: M RAD 08:37 | PROVIDERS: ATTEND Family Medicine Addiction Medicine | DX: R11.2 Nausea with vomiting, unspecified (principal) ==

== ENCOUNTER → 2022-06-19 | Outpatient (CLI) | payer OTHER | LOC: M RAD 07:42 | PROVIDERS: ATTEND Family Medicine Addiction Medicine | DX: R11.0 Nausea (principal); K30 Functional dyspepsia | CPT/HCPCS: 78264; A9541 ==

== ENCOUNTER 2023-07-12 09:18 | Emergency (ER) | payer OTHER ==
[~2023-07-12] VITALS: Ht 177.8 cm; Wt 74.2 kg
[~2023-07-12 09:18] MED LIST changes: +LIDO15SO PO; -LIDO2SOL17 PO
[2023-07-12 09:19] VITALS: BP 114/63; TEMP 97.7; O2SAT 97
== END 2023-07-12 14:25 | disposition left against medical advice (07) ==
LOC: M ED 09:18
DX: Z53.21 Procedure and treatment not carried out due to patient leaving prior to being seen by health care provider (principal)

== ENCOUNTER → 2023-12-19 | Outpatient (REF) | payer OTHER ==
[2023-12-19 14:47] LABS: SEMEN APPEARANCE OPAQUE (OPAQUE); SEMEN VOLUME 2.4 ml (2.0-5.0)
[2023-12-19 14:48] LABS: SEMEN VISCOSITY LIQUID (LIQUID); SEMEN pH 8.5 (7.0-8.0); SPERM CONCENTRATION 68.8 M/ml (>=15.0); WBC CONCENTRATION <=1 M/ml (<=1 M/ml)
== END ==
LOC: M SFHCWAGY 14:36
PROVIDERS: ATTEND Obstetrics & Gynecology
DX: N46.9 Male infertility, unspecified (principal)

== ENCOUNTER → 2024-03-06 | Outpatient (REF) | payer OTHER ==
[~2024-03-06] MED LIST changes: -LIDO15SO PO; +LIDO15SO8 PO
[2024-03-06 12:05] LABS: BASO % 0.6 % (0.0-1.0); EOS # 0.1 10^3/uL (0.0-0.5); EOS % 1.2 % (0.0-3.0); HEMATOCRIT 46.1 % (42.0-52.0); HEMOGLOBIN 15.7 g/dl (13.5-17.5); LYMPH # 2.6 10^3/uL (1.5-5.0); LYMPH % 40.2 % (24.0-44.0); MEAN CORPUSCULAR HEMOGLOBIN 33.1 pg (27.0-33.0); MEAN CORPUSCULAR HGB CONC 34.1 g/dl (32.0-36.5); MEAN CORPUSCULAR VOLUME 97.1 fl (80.0-96.0); MONO # 0.9 10^3/uL (0.0-0.8); MONO % 13.7 % (2.0-8.0); NEUTROPHILS # 2.8 10^3/uL (1.5-8.5); NEUTROPHILS % 43.5 % (36.0-66.0); PLATELET COUNT, AUTOMATED 195 10^3/uL (150-450); RED BLOOD COUNT 4.75 10^6/uL (4.30-6.10); WHITE BLOOD COUNT 6.4 10^3/uL (4.0-10.0)
[2024-03-06 12:31] LABS: LIPASE 30 U/L (12-53); VALPROIC ACID (DEPAKOTE) 83.9 UG/ML (50.0-100.0)
[2024-03-06 12:34] LABS: ALBUMIN 4.3 G/DL (3.2-5.2); ALKALINE PHOSPHATASE 61 U/L (46-116); ALT/SGPT 18 U/L (7.0-40); AST/SGOT 13 U/L (<34); BILIRUBIN,TOTAL 0.5 MG/DL (0.3-1.2); BLOOD UREA NITROGEN 14 MG/DL (9-23); CALCIUM LEVEL 10.5 MG/DL (8.5-10.1); CARBON DIOXIDE LEVEL 32 MMOL/L (20-31); CHLORIDE LEVEL 103 MMOL/L (98-107); CREATININE FOR GFR 0.99 MG/DL (0.70-1.30); GLOMERULAR FILTRATION RATE > 60.0 (>60); GLUCOSE, FASTING 83 MG/DL (60-100); POTASSIUM SERUM 4.7 MMOL/L (3.5-5.1); SODIUM LEVEL 138 MMOL/L (136-145); TOTAL PROTEIN 7.4 G/DL (5.7-8.2)
== END ==
LOC: M LAB REF 11:45
PROVIDERS: ATTEND Physician Assistant
DX: G40.309 Generalized idiopathic epilepsy and epileptic syndromes, not intractable, without status epilepticus (principal); R10.9 Unspecified abdominal pain

== ENCOUNTER → 2024-06-03 | Outpatient (CLI) | payer OTHER ==
[~2024-06-03] MED LIST changes: +ONDA-282 PO; -ONDA4TAB6 PO
== END ==
LOC: M RAD 10:32
PROVIDERS: ATTEND Physician Assistant
DX: R10.9 Unspecified abdominal pain (principal)

== ENCOUNTER → 2024-08-11 | Outpatient (CLI) | payer OTHER ==
[2024-08-11 13:13] LABS: HEMATOCRIT 39.5 % (42.0-52.0); HEMOGLOBIN 13.5 g/dl (13.5-17.5); MEAN CORPUSCULAR HGB CONC 34.2 g/dl (32.0-36.5); MEAN CORPUSCULAR VOLUME 96.6 fl (80.0-96.0); PLATELET COUNT, AUTOMATED 177 10^3/uL (150-450); RED BLOOD COUNT 4.09 10^6/uL (4.30-6.10); WHITE BLOOD COUNT 5.7 10^3/uL (4.0-10.0)
[2024-08-11 13:34] LABS: VALPROIC ACID (DEPAKOTE) 60.8 UG/ML (50.0-100.0)
[2024-08-11 13:36] LABS: ALBUMIN 3.9 G/DL (3.2-5.2); ALKALINE PHOSPHATASE 55 U/L (46-116); ALT/SGPT 15 U/L (7.0-40); AST/SGOT < 8 U/L (<34); BILIRUBIN,TOTAL 0.3 MG/DL (0.3-1.2); BLOOD UREA NITROGEN 13 MG/DL (9-23); CALCIUM LEVEL 9.5 MG/DL (8.5-10.1); CARBON DIOXIDE LEVEL 28 MMOL/L (20-31); CHLORIDE LEVEL 108 MMOL/L (98-107); CREATININE FOR GFR 1.04 MG/DL (0.70-1.30); GLOMERULAR FILTRATION RATE > 60.0 (>60); GLUCOSE, FASTING 99 MG/DL (60-100); POTASSIUM SERUM 4.4 MMOL/L (3.5-5.1); SODIUM LEVEL 136 MMOL/L (136-145); TOTAL PROTEIN 6.9 G/DL (5.7-8.2)
== END ==
LOC: M LAB 12:27
PROVIDERS: ATTEND Psychiatry & Neurology Clinical Neurophysiology
DX: G40.009 Localization-related (focal) (partial) idiopathic epilepsy and epileptic syndromes with seizures of localized onset, not intractable, without status epilepticus (principal)

== ENCOUNTER 2024-10-06 11:49 | Day surgery (SDC) | payer OTHER ==
[~2024-10-06] VITALS: Ht 175.3 cm; Wt 77.1 kg
[~2024-10-06 11:49] MED LIST changes: +CLON-412 PO; +NAPR-1405 PO; -NAPR500T6 PO; +OMEP-173 PO
[2024-10-06] MEDS ORDERED: propofoL 200 MG/20 ML VIAL As Ordered ONE (13:20)
[2024-10-06] MEDS ORDERED: LIDOCAINE 2% 100MG/5ML SDV (FOR ANES.) As Ordered ONE (13:20)
[2024-10-06] MEDS ORDERED: ePHEDrine SULFATE 25 MG/5 ML(5MG/ML) SYRINGE As Ordered ONE (13:24)
[2024-10-06 13:35] VITALS: TEMP 97.7
[2024-10-06 13:50] VITALS: BP 122/65; O2SAT 96
== END 2024-10-06 13:57 | disposition home or self-care (01) ==
LOC: M OPP 11:49
PROVIDERS: ATTEND Internal Medicine Gastroenterology
DX: K29.50 Unspecified chronic gastritis without bleeding (principal); K21.9 Gastro-esophageal reflux disease without esophagitis; F41.9 Anxiety disorder, unspecified; F32.A Depression, unspecified; F12.20 Cannabis dependence, uncomplicated; Z79.899 Other long term (current) drug therapy

== ENCOUNTER → 2024-12-11 | Outpatient (REF) | LOC: M PLAIMG 15:34 | PROVIDERS: ATTEND Internal Medicine | DX: M54.2 Cervicalgia (principal); M47.892 Other spondylosis, cervical region ==